=== PATIENT | male | born 1980 | race Caucasian/White ===

== ENCOUNTER 2017-11-15 12:26 | Emergency (ER) | payer MEDICAID, OTHER ==
[~2017-11-15] VITALS: Ht 175.3 cm; Wt 95.0 kg
[~2017-11-15 12:26] MED LIST: ALPR-624 PO; HYDR-569 PO
[2017-11-15] MEDS ORDERED: LORazepam 2 mg/ml vial IV ONE (14:30)
[2017-11-15] MEDS ORDERED: normal saline 1000ML IV soln IVB ONE (14:30)
[2017-11-15 14:52] LABS: HEMATOCRIT 42.5 % (42.0-52.0); HEMOGLOBIN 14.8 g/dl (14.0-17.9); MEAN CORPUSCULAR HEMOGLOBIN 31.3 PG (27.0-31.0); MEAN CORPUSCULAR HGB CONC 34.8 % (33.0-36.5); MEAN CORPUSCULAR VOLUME 90.1 FL (78-98); RED BLOOD COUNT 4.71 X10'6 (4.70-6.10); RED CELL DISTRIBUTION WIDTH 14.4 % (11.5-14.5); WHITE BLOOD COUNT 12.9 X10'3 (4.5-11.0)
[2017-11-15 14:53] LABS: MEAN PLATELET VOLUME 7.5 FL (7.4-10.4); PLATELET COUNT 324 X10'3 (140-440)
[2017-11-15] MEDS ORDERED: aspirin 81mg tab.chew PO ONE (15:05)
[2017-11-15 15:09] LABS: ALANINE AMINOTRANSFERASE 74 U/L (12-78); ALBUMIN 3.8 G/DL (3.4-5.0); ALBUMIN/GLOBULIN RATIO 0.9 (1.1-1.5); ALKALINE PHOSPHATASE 59 IU/L (46-116); ASPARTATE AMINO TRANSFERASE 54 U/L (10-37); BILIRUBIN,TOTAL 0.4 MG/DL (0.1-1.0); BLOOD UREA NITROGEN 11 MG/DL (7-18); BUN/CREATININE RATIO 9.8 (5.4-32.0); CALCIUM 8.8 MG/DL (8.5-10.1); CHLORIDE 102 MMOL/L (99-107); CREATININE 1.12 MG/DL (0.60-1.10); GLUCOSE 103 MG/DL (70-104); LIPASE 109 U/L (73-393); POTASSIUM 4.3 MMOL/L (3.5-5.1); SODIUM 139 MMOL/L (135-145); eGFR 74 ML/MIN
[2017-11-15 15:18] LABS: ANION GAP 21 (8-16); TOTAL CARBON DIOXIDE 16.3 MMOL/L (24-32)
[2017-11-15 15:43] LABS: PLATELET ESTIMATE NORMAL; TOTAL CELLS COUNTED 100
[2017-11-15 15:44] LABS: ROULEAUX 1+
[2017-11-15] MEDS ORDERED: LORA1TAB PO (17:21)
[2017-11-15 18:05] VITALS: BP 121/86
== END 2017-11-15 18:09 | disposition home or self-care (01) ==
LOC: ER 12:26
DX: F41.0 Panic disorder [episodic paroxysmal anxiety] (principal); R07.9 Chest pain, unspecified; F17.200 Nicotine dependence, unspecified, uncomplicated; Z60.2 Problems related to living alone
CPT/HCPCS: 36415; 71045; 80053; 83690; 84484; 85025; 85610; 93005; 96361; 96374; 99285; J7030

== ENCOUNTER 2018-04-20 07:11 | Emergency (ER) | payer MEDICAID, OTHER ==
[~2018-04-20] VITALS: Ht 175.3 cm; Wt 88.4 kg
[~2018-04-20 07:11] MED LIST changes: +HYDR-4383 PO; -HYDR-569 PO
[2018-04-20] MEDS ORDERED: morphine 4 MG/ML inj SYRINge IV PRN (07:35)
[2018-04-20] MEDS ORDERED: normal saline 1000ML IV soln IVB ONE ×2 (07:35→08:50)
[2018-04-20] MEDS ORDERED: ondansetron/PF 4mg/2ml inj IV ONE (07:35)
[2018-04-20 07:55] LABS: CLARITY,URINE CLEAR (Clear); COLOR,URINE YELLOW (Yellow); GLUCOSE, URINE NEGATIVE (Neg); KETONES,URINE NEGATIVE (Neg); LEUKOCYTE ESTERASE ,URINE NEGATIVE (Neg); NITRITES, URINE NEGATIVE (Neg); OCCULT BLOOD,URINE NEGATIVE (Neg); PROTEIN,URINE NEGATIVE (Neg); UROBILINOGEN,URINE 0.2 E.U/dL (0.2-1.0)
[2018-04-20 08:01] LABS: UA COLLECTION TYPE CLN CATCH MIDSTREAM
[2018-04-20 08:07] LABS: ALBUMIN 3.7 G/DL (3.4-5.0); ALKALINE PHOSPHATASE 75 IU/L (46-116); BILIRUBIN,TOTAL 0.5 MG/DL (0.1-1.0); CALCIUM 7.8 MG/DL (8.5-10.1); CHLORIDE 98 MMOL/L (99-107); CREATININE 1.19 MG/DL (0.60-1.10); LIPASE 155 U/L (73-393); TOTAL CARBON DIOXIDE 18.8 MMOL/L (24-32); eGFR 69 ML/MIN
[2018-04-20 08:18] LABS: EOSINOPHILS # (AUTO) 0.1 X10'3 (0-0.9); EOSINOPHILS % (AUTO) 0.8 % (0-6); RED CELL DISTRIBUTION WIDTH 13.6 % (11.5-14.5)
[2018-04-20 08:32] LABS: ALANINE AMINOTRANSFERASE 21 U/L (12-78); ALBUMIN/GLOBULIN RATIO 0.9 (1.1-1.5); ANION GAP 22 (8-16); BLOOD UREA NITROGEN 19 MG/DL (7-18); GLUCOSE 130 MG/DL (70-104); SODIUM 139 MMOL/L (135-145); TOTAL PROTEIN 7.7 G/DL (6.4-8.2)
[2018-04-20 08:34] LABS: MONOCYTES # (AUTO) 0.5 X10'3 (0-0.9)
[2018-04-20 08:35] LABS: ASPARTATE AMINO TRANSFERASE 21 U/L (10-37); POTASSIUM 3.6 MMOL/L (3.5-5.1)
[2018-04-20 08:49] LABS: BASOPHILS % (AUTO) 0.3 % (0-1); HEMOGLOBIN 14.9 g/dl (14.0-17.9); LYMPHOCYTES # (AUTO) 2.2 X10'3 (1.1-4.8); LYMPHOCYTES % (AUTO) 26.4 % (21-51); MEAN CORPUSCULAR HGB CONC 34.8 % (33.0-36.5); MEAN PLATELET VOLUME 8.7 FL (7.4-10.4); MONOCYTES % (AUTO) 6.6 % (2-12); NEUTROPHILS # (AUTO) 5.4 X10'3 (1.8-7.7); NEUTROPHILS % (AUTO) 65.9 % (42-75); PLATELET COUNT 182 X10'3 (140-440); RED BLOOD COUNT 4.83 X10'6 (4.70-6.10); WHITE BLOOD COUNT 8.2 X10'3 (4.5-11.0)
[2018-04-20] MEDS ORDERED: morphine 4 MG/ML inj SYRINge IV ONE (08:50)
[2018-04-20 09:15] VITALS: BP 129/65
== END 2018-04-20 09:17 | disposition home or self-care (01) ==
LOC: ER 07:11
DX: K85.90 Acute pancreatitis without necrosis or infection, unspecified (principal); F41.9 Anxiety disorder, unspecified; R11.2 Nausea with vomiting, unspecified
CPT/HCPCS: 36415; 80053; 81003; 83690; 85025; 96361; 96374; 96375; 99284; J2270; J2405

== ENCOUNTER 2020-02-01 12:54 | Emergency (ER) | payer MEDICAID ==
[~2020-02-01] VITALS: Ht 175.3 cm; Wt 84.1 kg
[2020-02-01] MEDS ORDERED: normal saline 1000ML IV soln IVB ONE (13:45)
[2020-02-01] MEDS ORDERED: ondansetron/PF 4mg/2ml inj IV ONE (13:45)
[2020-02-01] MEDS ORDERED: GEMF600T89 PO (13:55)
[2020-02-01] MEDS ORDERED: ATOR20TA66 PO (13:55)
[2020-02-01 14:00] LABS: BASOPHILS # (AUTO) 0.2 X10'3 (0-0.2); BASOPHILS % (AUTO) 0.8 % (0-1); EOSINOPHILS % (AUTO) 0.1 % (0-6); HEMATOCRIT 28.5 % (42.0-52.0); HEMOGLOBIN 9.5 g/dl (14.0-17.9); LYMPHOCYTES # (AUTO) 1.7 X10'3 (1.1-4.8); LYMPHOCYTES % (AUTO) 7.5 % (21-51); MEAN CORPUSCULAR HEMOGLOBIN 29.7 PG (27.0-31.0); MEAN CORPUSCULAR HGB CONC 33.5 g/dL (33.0-36.5); MEAN CORPUSCULAR VOLUME 88.6 FL (78-98); MEAN PLATELET VOLUME 6.9 FL (7.4-10.4); MONOCYTES # (AUTO) 1.2 X10'3 (0-0.9); MONOCYTES % (AUTO) 5.4 % (2-12); NEUTROPHILS % (AUTO) 86.2 % (42-75); PLATELET COUNT 269 X10'3 (140-440); RED BLOOD COUNT 3.22 X10'6 (4.70-6.10); RED CELL DISTRIBUTION WIDTH 14.9 % (11.5-14.5); WHITE BLOOD COUNT 22.1 X10'3 (4.5-11.0)
[2020-02-01] MEDS: diatr meglu/diatrizoate 30ml oral sol.-(3 dose) bottle PO SCH ×3 (14:04→15:47)
[2020-02-01] MEDS ORDERED: normal saline 1000ML IV soln IV ONE (14:05)
[2020-02-01 14:18] LABS: ALANINE AMINOTRANSFERASE 15 U/L (12-78); ALBUMIN/GLOBULIN RATIO 0.7 (1.1-1.5); ALKALINE PHOSPHATASE 56 IU/L (46-116); ANION GAP 7 (8-16); ASPARTATE AMINO TRANSFERASE 15 U/L (10-37); BILIRUBIN,TOTAL 0.7 MG/DL (0.1-1.0); BLOOD UREA NITROGEN 10 MG/DL (7-18); BUN/CREATININE RATIO 8.9 (5.4-32.0); CALCIUM 8.7 MG/DL (8.5-10.1); CHLORIDE 95 MMOL/L (99-107); CREATININE 1.12 MG/DL (0.60-1.10); GLUCOSE 109 MG/DL (70-104); LIPASE 75 U/L (73-393); POTASSIUM 3.7 MMOL/L (3.5-5.1); SODIUM 130 MMOL/L (135-145); TOTAL CARBON DIOXIDE 27.9 MMOL/L (24-32); TOTAL PROTEIN 7.3 G/DL (6.4-8.2); eGFR 73 ML/MIN
--- NOTE | 2020-02-01 14:40 | NUR ---
Pt ambulatory to the restroom. Pt refuses to use the urinal in the room and keep the IV fluid connected.
[2020-02-01 15:02] LABS: CLARITY,URINE CLEAR (Clear); COLOR,URINE STRAW (Yellow); GLUCOSE, URINE NEGATIVE (Neg); KETONES,URINE NEGATIVE (Neg); LEUKOCYTE ESTERASE ,URINE NEGATIVE (Neg); NITRITES, URINE NEGATIVE (Neg); OCCULT BLOOD,URINE TRACE-INTACT (Neg); PROTEIN,URINE NEGATIVE (Neg); UROBILINOGEN,URINE 0.2 E.U/dL (0.2-1.0)
[2020-02-01 15:03] LABS: UA COLLECTION TYPE CLN CATCH MIDSTREAM
[2020-02-01 15:08] LABS: BACTERIA,URINE NONE SEEN /HPF (Neg); MUCUS STRANDS NONE SEEN /LPF (Neg); RBC,URINE NONE SEEN /HPF (0-2); SQUAMOUS EPITHELIAL CELL,UR FEW /LPF (FEW); WBC,URINE 0-4 /HPF (0-4)
--- NOTE | 2020-02-01 15:30 | NUR ---
Pt is aware of the order to remain NPO other than Gastrografin oral contrast. Pt is eating his tic tacs regardless of the NPO instructions.
[2020-02-01] MEDS ORDERED: fentaNYL/PF 50MCG/1 ML 2ML syringe IV ONE ×2 (15:35→21:30)
[2020-02-01] MEDS ORDERED: iohexol 300mg/ml 100ml inj. ONE (15:45)
--- NOTE | 2020-02-01 16:28 | NUR ---
Pt ambulatory to the restroom and insisted on having his IV disconnected to make it easier to ambulate.
[2020-02-01] MEDS ORDERED: OMEG-167 PO (17:17)
[2020-02-01] MEDS ORDERED: ALPR1TAB7 PO (17:17)
[2020-02-01] MEDS ORDERED: piperacillin/tazo 3.375gm/50ml 50 ML IV ONE (17:50)
--- NOTE | 2020-02-01 17:52 | NUR ---
discussed pt's c/o nausea and restlessness w/ edmd oliveira; new order received for reglan 30mg Addendum: 02/01/20 at 1753 by JOSEPHINETEBREN s/b 10mg not 30mg.
[2020-02-01] MEDS ORDERED: metoclopramide 5 mg/ml inj IV ONE (17:55)
--- NOTE | 2020-02-01 18:38 | NUR ---
Pt's IV fluid bolus is completed, vitals stable, zosyn 3.375gm is infusing, close to completion.
--- NOTE | 2020-02-01 18:45 | NUR ---
Pt requested IV fluid disconnected again. IV fluid bolus and abx infusion completed. IV saline locked at this time.
[2020-02-01 18:48] LABS: ETHANOL < 0.010 GM/DL (0.0-0.010)
[2020-02-01 18:56] LABS: URINE AMPHETAMINE SCREEN NEGATIVE (Neg); URINE BARBITUATE SCREEN NEGATIVE (Neg); URINE BENZODIAZEPINES SCREEN POSITIVE (Neg); URINE CANNABINOID SCREEN POSITIVE (Neg); URINE COCAINE SCREEN NEGATIVE (Neg); URINE METHADONE SCREEN NEGATIVE (Neg); URINE OPIATE SCREEN POSITIVE (Neg); URINE PHENCYCLIDINE SCREEN NEGATIVE (Neg)
[2020-02-01] MEDS ORDERED: normal saline 1000ml 1,000 ML IV ONE (19:40)
[2020-02-01] MEDS ORDERED: acetaminophen 325mg tablet PO ONE (19:40)
--- NOTE | 2020-02-01 20:13 | NUR ---
CALLED [facility] SAID THAT HIS CASE WAS REFERRED TO THERE [facility]. LUCÍA THE S3B MULTI SENSOR OPERATOR SAID THAT THE [facility] WOULD GIVE ME A CALL BACK
[2020-02-01] MEDS ORDERED: morphine 4 MG/ML inj SYRINge IV ONE (22:55)
--- NOTE | 2020-02-02 00:19 | NUR ---
pt came out to NS and said the morphine "didnt do shit." Will notify
[2020-02-02] MEDS ORDERED: HYDROmorphone 1 mg/ml syringe IV ONE ×2 (00:20→02:10)
[2020-02-02 00:31] VITALS: BP 131/65
[2020-02-02] MEDS ORDERED: acetaminophen 325mg tablet PO STA (00:37)
--- NOTE | 2020-02-02 02:03 | NUR ---
checked on him. updated him that he will go by fixed wing and they will be here probably within the hour to get him. He is sweating. Informed him that his temp probably broke.
--- NOTE | 2020-02-02 03:03 | NUR ---
RAMESH TO [facility] AT [facility]
== END 2020-02-02 03:38 | disposition short-term general hospital (02) ==
LOC: ER 12:56
DX: K86.3 Pseudocyst of pancreas (principal); R10.819 Abdominal tenderness, unspecified site; F41.9 Anxiety disorder, unspecified; F17.200 Nicotine dependence, unspecified, uncomplicated; F15.90 Other stimulant use, unspecified, uncomplicated; R11.2 Nausea with vomiting, unspecified; Z98.890 Other specified postprocedural states; Z72.89 Other problems related to lifestyle; Z60.2 Problems related to living alone; Z79.899 Other long term (current) drug therapy
CPT/HCPCS: 36415; 74177; 80053; 80305; 80320; 81001; 83605; 83690; 84145; 85025; 87040; 87635; 96361; 96365; 96375; 96376; 99285; C9803; J1170; J2270; J2405; J2543; J2765; J3010; J7030; Q9963; Q9967

== ENCOUNTER 2020-02-17 13:00 | Emergency (ER) | payer MEDICAID ==
[~2020-02-17] VITALS: Ht 175.3 cm; Wt 66.5 kg
[~2020-02-17 13:00] MED LIST changes: -ALPR-624 PO; +ALPR1TAB7 PO; +ATOR20TA66 PO; -HYDR-4383 PO; +OMEG-167 PO
[2020-02-17 15:26] LABS: MEAN CORPUSCULAR HGB CONC 33.3 g/dL (33.0-36.5); MONOCYTES # (AUTO) 0.7 X10'3 (0-0.9)
[2020-02-17 15:27] LABS: BASOPHILS # (AUTO) 0.2 X10'3 (0-0.2); BASOPHILS % (AUTO) 1.2 % (0-1); EOSINOPHILS % (AUTO) 0.2 % (0-6); HEMATOCRIT 39.1 % (42.0-52.0); LYMPHOCYTES # (AUTO) 2.5 X10'3 (1.1-4.8); MEAN CORPUSCULAR HEMOGLOBIN 28.5 PG (27.0-31.0); MEAN CORPUSCULAR VOLUME 85.6 FL (78-98); MEAN PLATELET VOLUME 7.1 FL (7.4-10.4); MONOCYTES % (AUTO) 4.5 % (2-12); NEUTROPHILS # (AUTO) 11.5 X10'3 (1.8-7.7); NEUTROPHILS % (AUTO) 77.1 % (42-75); PLATELET COUNT 751 X10'3 (140-440); RED BLOOD COUNT 4.57 X10'6 (4.70-6.10); RED CELL DISTRIBUTION WIDTH 15.8 % (11.5-14.5); WHITE BLOOD COUNT 14.9 X10'3 (4.5-11.0)
[2020-02-17 15:40] LABS: ANION GAP 13 (8-16); BILIRUBIN,TOTAL 0.6 MG/DL (0.1-1.0); BLOOD UREA NITROGEN 9 MG/DL (7-18); BUN/CREATININE RATIO 9.3 (5.4-32.0); CALCIUM 10.2 MG/DL (8.5-10.1); CHLORIDE 96 MMOL/L (99-107); CREATININE 0.97 MG/DL (0.60-1.10); GLUCOSE 128 MG/DL (70-104); SODIUM 138 MMOL/L (135-145); TOTAL CARBON DIOXIDE 29.1 MMOL/L (24-32); eGFR 87 ML/MIN
[2020-02-17 15:41] LABS: ALANINE AMINOTRANSFERASE 8 U/L (12-78); ALBUMIN 3.8 G/DL (3.4-5.0); ALBUMIN/GLOBULIN RATIO 0.7 (1.1-1.5); ALKALINE PHOSPHATASE 89 IU/L (46-116); ASPARTATE AMINO TRANSFERASE 8 U/L (10-37); LIPASE 109 U/L (73-393); TOTAL PROTEIN 9.1 G/DL (6.4-8.2)
[2020-02-17] MEDS ORDERED: MEROPENEM 1GM/NS 50ML IVPB 50 ML IV STA (15:54)
[2020-02-17] MEDS ORDERED: normal saline 1000ML IV soln IVB ONE ×2 (15:55→16:35)
[2020-02-17] MEDS ORDERED: metoclopramide 5 mg/ml inj IV ONE (15:55)
[2020-02-17] MEDS ORDERED: oxyCODONE SR 10mg (sust. release) tab PO ONE (15:55)
[2020-02-17] MEDS ORDERED: iohexol 300mg/ml 100ml inj. ONE (16:00)
[2020-02-17] MEDS ORDERED: normal saline 1000ML IV soln IV ONE (16:35)
[2020-02-17 18:52] VITALS: BP 114/77
== END 2020-02-17 18:54 | disposition home or self-care (01) ==
LOC: ER 13:01
DX: K91.89 Other postprocedural complications and disorders of digestive system (principal); R11.2 Nausea with vomiting, unspecified; K59.00 Constipation, unspecified; F41.9 Anxiety disorder, unspecified; F15.90 Other stimulant use, unspecified, uncomplicated; Z98.890 Other specified postprocedural states; Z60.2 Problems related to living alone; Z79.899 Other long term (current) drug therapy
CPT/HCPCS: 36415; 74177; 80053; 83605; 83690; 84145; 85025; 87040; 93005; 96365; 96375; 99285; J2185; J2765; J7030; Q9967

== ENCOUNTER 2021-06-06 13:43 | Inpatient (IN) | payer MEDICAID ==
[~2021-06-06] VITALS: Ht 175.3 cm; Wt 90.9 kg
[2021-06-06 14:28] LABS: BASOPHILS % (AUTO) 0.2 % (0-1); EOSINOPHILS % (AUTO) 0.1 % (0-6); HEMATOCRIT 45.1 % (42.0-52.0); HEMOGLOBIN 15.7 g/dl (14.0-17.9); LYMPHOCYTES # (AUTO) 1.3 X10'3 (1.1-4.8); LYMPHOCYTES % (AUTO) 6.7 % (21-51); MEAN CORPUSCULAR HEMOGLOBIN 30.4 PG (27.0-31.0); MEAN CORPUSCULAR HGB CONC 34.7 g/dL (33.0-36.5); MEAN CORPUSCULAR VOLUME 87.6 FL (78-98); MEAN PLATELET VOLUME 7.2 FL (7.4-10.4); MONOCYTES # (AUTO) 1.2 X10'3 (0-0.9); MONOCYTES % (AUTO) 6.3 % (2-12); NEUTROPHILS # (AUTO) 16.2 X10'3 (1.8-7.7); NEUTROPHILS % (AUTO) 86.7 % (42-75); PLATELET COUNT 356 X10'3 (140-440); RED BLOOD COUNT 5.15 X10'6 (4.70-6.10); RED CELL DISTRIBUTION WIDTH 16.1 % (11.5-14.5); WHITE BLOOD COUNT 18.7 X10'3 (4.5-11.0)
[2021-06-06 14:41] LABS: ALANINE AMINOTRANSFERASE 39 U/L (12-78); ALBUMIN 3.6 G/DL (3.4-5.0); ALBUMIN/GLOBULIN RATIO 0.7 (1.1-1.5); ALKALINE PHOSPHATASE 54 IU/L (46-116); AMYLASE 59 U/L (25-115); ANION GAP 10 (8-16); ASPARTATE AMINO TRANSFERASE 19 U/L (10-37); BILIRUBIN,TOTAL 0.7 MG/DL (0.1-1.0); BLOOD UREA NITROGEN 19 MG/DL (7-18); BUN/CREATININE RATIO 14.3 (5.4-32.0); CALCIUM 9.5 MG/DL (8.5-10.1); CHLORIDE 97 MMOL/L (99-107); CREATININE 1.33 MG/DL (0.60-1.10); GLUCOSE 109 MG/DL (70-104); LIPASE 112 U/L (73-393); POTASSIUM 4.1 MMOL/L (3.5-5.1); SODIUM 135 MMOL/L (135-145); TOTAL CARBON DIOXIDE 28.5 MMOL/L (24-32); TOTAL PROTEIN 8.8 G/DL (6.4-8.2); eGFR 60 ML/MIN
[2021-06-06 15:44] LABS: CLARITY,URINE CLEAR (Clear); COLOR,URINE ORANGE (Yellow); GLUCOSE, URINE NEGATIVE (Neg); KETONES,URINE 15 mg/dl (Neg); LEUKOCYTE ESTERASE ,URINE NEGATIVE (Neg); NITRITES, URINE NEGATIVE (Neg); OCCULT BLOOD,URINE MODERATE (Neg); PH,URINE 6.5 (4.8-8.0); PROTEIN,URINE 30 mg/dl (Neg); UROBILINOGEN,URINE 0.2 E.U/dL (0.2-1.0)
[2021-06-06 15:45] LABS: UA COLLECTION TYPE URINAL
[2021-06-06 15:51] LABS: MUCUS STRANDS MODERATE /LPF (Neg)
[2021-06-06 15:52] LABS: SQUAMOUS EPITHELIAL CELL,UR FEW /LPF (FEW)
[2021-06-06 15:54] LABS: BACTERIA,URINE FEW /HPF (Neg)
[2021-06-06 15:55] LABS: WBC,URINE 0-4 /HPF (0-4)
[2021-06-06] MEDS ORDERED: ondansetron/PF 4mg/2ml inj IV ONE (17:00)
[2021-06-06] MEDS ORDERED: HYDROmorphone 1 mg/ml syringe IV ONE (17:00)
[2021-06-06] MEDS ORDERED: metroNIDAZOLE-Flagyl 500mg/NS 100 ML IV STA (17:37)
[2021-06-06] MEDS ORDERED: normal saline 1000ML IV soln IV ONE (17:40)
[2021-06-06] MEDS ORDERED: vancomycin/NS 1 GM ADD-VANTAGE 250 ML IV ONE (17:40)
[2021-06-06] MEDS ORDERED: piperacillin/tazo 3.375gm/50ml 50 ML IV ONE (17:40)
[2021-06-06] MEDS ORDERED: acetaminophen 325mg tablet PO ONE (18:20)
[2021-06-06] MEDS: HYDROmorphone 1 mg/ml syringe IV PRN ×3 (18:49→23:12)
[2021-06-06] MEDS ORDERED: HYDROmorphone/PF 0.2 MG/ML SYRINGE IV PRN (19:25)
[2021-06-06] MEDS ORDERED: mag hydrox/Alum hydrox/simeth 30ml oral suspension PO PRN (19:25)
[2021-06-06] MEDS ORDERED: ondansetron/PF 4mg/2ml inj IV PRN (19:25)
[2021-06-06] MEDS ORDERED: HYDROmorphone inj. 0.5 MG/0.5 ML DISP.SYRIN IV PRN (19:25)
[2021-06-06] MEDS ORDERED: bisacodyl 10mg suppository rectal RC PRN (19:25)
[2021-06-06] MEDS ORDERED: morphine 2 MG/ML inj. syringe IV PRN ×2 (19:25)
[2021-06-06] MEDS ORDERED: magnesium hydroxide 30ml (MOM) UD suspension PO PRN (19:25)
[2021-06-06] MEDS ORDERED: ondansetron 4mg rapidly disintigrating tab PO PRN (19:25)
[2021-06-06] MEDS ORDERED: diphenhydrAMINE 50 mg/ml inj IV PRN (19:25)
[2021-06-06] MEDS ORDERED: acetaminophen 325mg tablet PO PRN (19:25)
[2021-06-06] MEDS ORDERED: diphenhydrAMINE 25mg capsule PO PRN (19:25)
[2021-06-06] MEDS ORDERED: acetaminophen 650mg rectal suppository RC PRN (19:25)
[2021-06-06] MEDS ORDERED: HYDROcodone/acetaminophen 5mg/325mg tablet PO PRN (19:25)
[2021-06-06] MEDS ORDERED: ringers solution, lacted 1,000 ML IV ONE (19:30)
[2021-06-06 20:12] LABS: CREATINE KINASE 273 U/L (39-308); MAGNESIUM 2.5 MG/DL (1.5-2.4); PHOSPHORUS 2.9 MG/DL (2.3-4.5)
[2021-06-06 20:54] LABS: URINE AMPHETAMINE SCREEN NEGATIVE (Neg); URINE BARBITUATE SCREEN NEGATIVE (Neg); URINE BENZODIAZEPINES SCREEN NEGATIVE (Neg); URINE CANNABINOID SCREEN POSITIVE (Neg); URINE COCAINE SCREEN NEGATIVE (Neg); URINE METHADONE SCREEN NEGATIVE (Neg); URINE OPIATE SCREEN NEGATIVE (Neg); URINE PHENCYCLIDINE SCREEN NEGATIVE (Neg)
[2021-06-06] MEDS: docusate sod 100mg capsule PO SCH (20:58)
[2021-06-06] MEDS ORDERED: temazepam 15mg capsule PO PRN (21:00)
[2021-06-06] MEDS: ALPRAZolam 0.5mg tablet PO PRN (21:21)
[2021-06-06 22:00] VITALS: BP 104/48
[2021-06-06] MEDS: normal saline 1000ml 1,000 ML IV SCH (22:00)
--- NOTE | 2021-06-06 22:30 | NUR ---
Assumed patient care. Patient brought to unit via wheelchair. Vitals signs Currently appear to be stable. Patient complaints pain Med IV given as ordered. Pt alert and oriented.Pt placed on low bed and locked. Bedside table and call light within reach. Please see patient chart for further assessments
[2021-06-07] VITALS (15 sets, daily range): BP systolic 90–137; BP diastolic 41–77
[2021-06-07] MEDS: piperacillin/tazo 4.5gm/100ml 100 ML IV SCH ×3 (00:24→16:17)
[2021-06-07] MEDS: HYDROmorphone 1 mg/ml syringe IV PRN ×11 (01:20→19:14)
[2021-06-07] MEDS: HYDROcodone/acetaminophen 10/325mg tab PO PRN ×2 (02:23→06:56)
[2021-06-07] MEDS: ALPRAZolam 0.5mg tablet PO PRN ×2 (02:24→22:01)
[2021-06-07] MEDS: normal saline 1000ml 1,000 ML IV SCH ×3 (06:05→19:20)
--- NOTE | 2021-06-07 06:46 | NUR ---
Problems reprioritized. Patient report given, questions answered & plan of care reviewed with Jeniffer TORRE .
--- NOTE | 2021-06-07 06:55 | NUR ---
Patient in room PCU 3013. I have received report from [place] and had the opportunity to ask questions and assume patient care.
[2021-06-07 06:59] LABS: BASOPHILS % (AUTO) 0.1 % (0-1); EOSINOPHILS # (AUTO) 0.1 X10'3 (0-0.9); EOSINOPHILS % (AUTO) 0.4 % (0-6); HEMATOCRIT 39.5 % (42.0-52.0); HEMOGLOBIN 13.7 g/dl (14.0-17.9); MEAN CORPUSCULAR HEMOGLOBIN 30.4 PG (27.0-31.0); MEAN CORPUSCULAR HGB CONC 34.6 g/dL (33.0-36.5); MEAN CORPUSCULAR VOLUME 87.8 FL (78-98); MEAN PLATELET VOLUME 7.3 FL (7.4-10.4); MONOCYTES # (AUTO) 0.9 X10'3 (0-0.9); MONOCYTES % (AUTO) 6.9 % (2-12); NEUTROPHILS # (AUTO) 11.1 X10'3 (1.8-7.7); NEUTROPHILS % (AUTO) 84.6 % (42-75); PLATELET COUNT 270 X10'3 (140-440); WHITE BLOOD COUNT 13.1 X10'3 (4.5-11.0)
[2021-06-07] MEDS ORDERED: vancomycin/NS 1 GM ADD-VANTAGE 250 ML IV SCH (07:00)
[2021-06-07] MEDS: pantoprazole IV 40 MG in dextrose 5%-water 100 ML IV SCH (07:00)
[2021-06-07] MEDS: docusate sod 100mg capsule PO SCH ×2 (07:00→19:12)
[2021-06-07 07:09] LABS: APTT 33 SECONDS (22-32)
[2021-06-07 07:25] LABS: ALANINE AMINOTRANSFERASE 26 U/L (12-78); ALBUMIN 2.8 G/DL (3.4-5.0); ALBUMIN/GLOBULIN RATIO 0.6 (1.1-1.5); ALKALINE PHOSPHATASE 46 IU/L (46-116); ANION GAP 9 (8-16); ASPARTATE AMINO TRANSFERASE 21 U/L (10-37); BILIRUBIN,TOTAL 0.4 MG/DL (0.1-1.0); BLOOD UREA NITROGEN 16 MG/DL (7-18); CALCIUM 8.4 MG/DL (8.5-10.1); CHLORIDE 103 MMOL/L (99-107); CHOL/HDL RATIO 4.9 (0.00-4.99); CHOLESTEROL 93 MG/DL (0-200); GLUCOSE 116 MG/DL (70-104); HDL CHOLESTEROL 19 MG/DL (35-60); LDL CHOLESTEROL 46 MG/DL (50-100); POTASSIUM 3.7 MMOL/L (3.5-5.1); SODIUM 136 MMOL/L (135-145); TOTAL CARBON DIOXIDE 24.3 MMOL/L (24-32); TOTAL PROTEIN 7.3 G/DL (6.4-8.2); TRIGLYCERIDES 101 MG/DL (20-135); eGFR 83 ML/MIN
[2021-06-07] MEDS ORDERED: LIDOcaine 1% 30ml preserv. free vial IJ STA (11:38)
[2021-06-07] MEDS ORDERED: midazolam 1 mg/ML 2ml injection ONE (12:23)
[2021-06-07] MEDS ORDERED: fentaNYL/PF 50MCG/1 ML 2ML syringe ONE (12:23)
[2021-06-07] MEDS ORDERED: oxyCODONE/APAP 5-325mg tablet PO PRN (13:30)
[2021-06-07] MEDS: oxyCODONE/APAP 10/325mg tablet PO PRN ×2 (14:17→22:02)
[2021-06-07] MEDS: vancomycin/NS 1 GM ADD-VANTAGE 250 ML IV SCH ×2 (14:33→22:01)
[2021-06-08] MEDS: piperacillin/tazo 4.5gm/100ml 100 ML IV SCH ×3 (00:27→16:00)
[2021-06-08 02:00] VITALS: BP 112/53
[2021-06-08] MEDS: HYDROmorphone 1 mg/ml syringe IV PRN ×7 (05:02→22:57)
[2021-06-08 06:00] VITALS: BP 123/61
[2021-06-08] MEDS ORDERED: VANCOMYCIN LEVEL IV ONE (06:30)
--- NOTE | 2021-06-08 06:31 | NUR ---
Patient in room PCU 3013. I have received report from jolie unger and had the opportunity to ask questions and assume patient care.
[2021-06-08 07:08] LABS: BASOPHILS % (AUTO) 0.2 % (0-1); EOSINOPHILS # (AUTO) 0.1 X10'3 (0-0.9); EOSINOPHILS % (AUTO) 0.7 % (0-6); HEMATOCRIT 36.5 % (42.0-52.0); HEMOGLOBIN 12.6 g/dl (14.0-17.9); LYMPHOCYTES # (AUTO) 0.7 X10'3 (1.1-4.8); MEAN CORPUSCULAR HEMOGLOBIN 30.5 PG (27.0-31.0); MEAN CORPUSCULAR HGB CONC 34.6 g/dL (33.0-36.5); MEAN CORPUSCULAR VOLUME 88.1 FL (78-98); MEAN PLATELET VOLUME 7.2 FL (7.4-10.4); MONOCYTES # (AUTO) 0.7 X10'3 (0-0.9); MONOCYTES % (AUTO) 6.8 % (2-12); NEUTROPHILS # (AUTO) 8.3 X10'3 (1.8-7.7); NEUTROPHILS % (AUTO) 85.3 % (42-75); PLATELET COUNT 293 X10'3 (140-440); RED BLOOD COUNT 4.15 X10'6 (4.70-6.10); RED CELL DISTRIBUTION WIDTH 15.5 % (11.5-14.5); WHITE BLOOD COUNT 9.7 X10'3 (4.5-11.0)
[2021-06-08] MEDS: docusate sod 100mg capsule PO SCH ×2 (07:20→20:43)
[2021-06-08] MEDS: vancomycin/NS 1 GM ADD-VANTAGE 250 ML IV SCH (07:20)
[2021-06-08 07:38] LABS: ALANINE AMINOTRANSFERASE 65 U/L (12-78); ALBUMIN 2.6 G/DL (3.4-5.0); ALBUMIN/GLOBULIN RATIO 0.6 (1.1-1.5); ALKALINE PHOSPHATASE 104 IU/L (46-116); ANION GAP 10 (8-16); ASPARTATE AMINO TRANSFERASE 53 U/L (10-37); BILIRUBIN,TOTAL 0.5 MG/DL (0.1-1.0); BLOOD UREA NITROGEN 13 MG/DL (7-18); CALCIUM 8.6 MG/DL (8.5-10.1); CHLORIDE 103 MMOL/L (99-107); GLUCOSE 119 MG/DL (70-104); POTASSIUM 3.6 MMOL/L (3.5-5.1); SODIUM 138 MMOL/L (135-145); TOTAL CARBON DIOXIDE 24.6 MMOL/L (24-32); eGFR 83 ML/MIN
[2021-06-08] MEDS: ALPRAZolam 0.5mg tablet PO PRN ×2 (09:34→20:43)
[2021-06-08] MEDS: normal saline 1000ml 1,000 ML IV SCH (09:35)
[2021-06-08] MEDS: oxyCODONE/APAP 10/325mg tablet PO PRN ×3 (09:35→23:28)
[2021-06-08] MEDS: pantoprazole IV 40 MG in dextrose 5%-water 100 ML IV SCH (09:36)
[2021-06-08 11:00] VITALS: BP 129/85
--- NOTE | 2021-06-08 13:52 | NUR ---
pt Iv was problematic this AM, so antibiotics were delayed some, but it was replaced. Pt Iv just got ripped out during zosyn administration, need to have a new IV. Will attempt to get pts IV so antibiotics can be continued. will try to stay on track with pt antibiotics
[2021-06-08 15:00] VITALS: BP 135/74
--- NOTE | 2021-06-08 16:08 | NUR ---
pt pulled out 3rd Iv for the day. antibiotics from earlier today are still trying to finish. i have not been able to hang my 1300 vanco due to pharmacy stating it can not be hung at the [facility]. will contact pharmacy again
--- NOTE | 2021-06-08 16:14 | NUR ---
pt IVs have been pulled out due to pt not being able to sit still, i did medicate pt with Xanax in order to help him relax. Attempts made for Ivs is 4 total for the shift and this is why pt antibiotics are running behind. Talked to pharmacist walter in pharmacy he stated to non admin the 1600 Zosyn since the dose for 1300 was late due to the IV situations throughout the shift. will continue to try to catch up on antibiotics from the day.
--- NOTE | 2021-06-08 16:32 | NUR ---
Page Sent PAGER ID: [phone] MESSAGE: [phone] felipa Clark pt is back to back with dilaudid and Percocet 10 1tab tab. would you like to try Percocet 10 2 tabs. robbie [phone]
[2021-06-08] MEDS: VANCOmycin 1250MG/NS 250ml Bag 250 ML IV SCH ×2 (16:40→20:55)
--- NOTE | 2021-06-08 16:49 | NUR ---
Page Sent PAGER ID: [phone] MESSAGE: Jose A Clark, please call me about pt zuhair, about pt behavior. [email or web address] [phone]
--- NOTE | 2021-06-08 18:11 | NUR ---
Problems reprioritized. Patient report given, questions answered & plan of care reviewed with Issa unger.
[2021-06-08 19:00] VITALS: BP 118/57
[2021-06-08] MEDS: lactobacillus rhamnosus 10,000 MMU CELLS/CAPSULE PO SCH (20:43)
[2021-06-08 22:00] VITALS: BP 131/78
[2021-06-09] MEDS: normal saline 1000ml 1,000 ML IV SCH ×3 (04:51→17:25)
[2021-06-09] MEDS: VANCOmycin 1250MG/NS 250ml Bag 250 ML IV SCH ×3 (04:51→20:52)
[2021-06-09] MEDS: HYDROmorphone 1 mg/ml syringe IV PRN ×5 (06:05→19:09)
--- NOTE | 2021-06-09 06:53 | NUR ---
Problems reprioritized. Patient report given, questions answered & plan of care reviewed with LEONARDO. Addendum: 06/09/21 at 0654 by Praveen West RN Amended: Links added.
[2021-06-09 07:00] VITALS: BP 101/50
[2021-06-09 07:04] LABS: BASOPHILS % (AUTO) 0.7 % (0-1); EOSINOPHILS # (AUTO) 0.1 X10'3 (0-0.9); EOSINOPHILS % (AUTO) 2.4 % (0-6); HEMOGLOBIN 13.3 g/dl (14.0-17.9); LYMPHOCYTES # (AUTO) 1.4 X10'3 (1.1-4.8); LYMPHOCYTES % (AUTO) 22.3 % (21-51); MEAN CORPUSCULAR HEMOGLOBIN 30.3 PG (27.0-31.0); MEAN CORPUSCULAR HGB CONC 34.1 g/dL (33.0-36.5); MEAN CORPUSCULAR VOLUME 88.8 FL (78-98); MEAN PLATELET VOLUME 7.2 FL (7.4-10.4); MONOCYTES # (AUTO) 0.5 X10'3 (0-0.9); MONOCYTES % (AUTO) 7.8 % (2-12); NEUTROPHILS # (AUTO) 4.1 X10'3 (1.8-7.7); NEUTROPHILS % (AUTO) 66.8 % (42-75); PLATELET COUNT 336 X10'3 (140-440); RED BLOOD COUNT 4.39 X10'6 (4.70-6.10); RED CELL DISTRIBUTION WIDTH 15.6 % (11.5-14.5); WHITE BLOOD COUNT 6.1 X10'3 (4.5-11.0)
[2021-06-09 07:31] LABS: ALANINE AMINOTRANSFERASE 72 U/L (12-78); ALBUMIN 2.6 G/DL (3.4-5.0); ALBUMIN/GLOBULIN RATIO 0.6 (1.1-1.5); ALKALINE PHOSPHATASE 81 IU/L (46-116); ANION GAP 10 (8-16); ASPARTATE AMINO TRANSFERASE 36 U/L (10-37); BILIRUBIN,TOTAL 0.3 MG/DL (0.1-1.0); BLOOD UREA NITROGEN 13 MG/DL (7-18); BUN/CREATININE RATIO 13.7 (5.4-32.0); CALCIUM 8.9 MG/DL (8.5-10.1); CHLORIDE 106 MMOL/L (99-107); CREATININE 0.95 MG/DL (0.60-1.10); GLUCOSE 101 MG/DL (70-104); SODIUM 139 MMOL/L (135-145); TOTAL CARBON DIOXIDE 23.3 MMOL/L (24-32); TOTAL PROTEIN 7.2 G/DL (6.4-8.2); eGFR 88 ML/MIN
--- NOTE | 2021-06-09 07:39 | NUR ---
Patient in room PCU 3013B. I have received report from NICOH LEAHY and had the opportunity to ask questions and assume patient care.
[2021-06-09] MEDS: pantoprazole IV 40 MG in dextrose 5%-water 100 ML IV SCH (08:00)
[2021-06-09] MEDS: piperacillin/tazo 4.5gm/100ml 100 ML IV SCH ×3 (08:00→16:38)
[2021-06-09] MEDS: lactobacillus rhamnosus 10,000 MMU CELLS/CAPSULE PO SCH ×2 (08:14→19:10)
[2021-06-09] MEDS: docusate sod 100mg capsule PO SCH ×2 (08:14→19:10)
[2021-06-09] MEDS: ALPRAZolam 0.5mg tablet PO PRN ×2 (08:47→20:52)
[2021-06-09 11:00] VITALS: BP 121/56
[2021-06-09] MEDS: oxyCODONE/APAP 10/325mg tablet PO PRN ×3 (11:58→22:08)
[2021-06-09] MEDS ORDERED: VANCOMYCIN LEVEL IV ONE (12:30)
[2021-06-09 15:00] VITALS: BP 101/62
[2021-06-09 18:00] VITALS: BP 113/58
--- NOTE | 2021-06-09 18:43 | NUR ---
Problems reprioritized. Patient report given, questions answered & plan of care reviewed with NICHO FREEMAN.
[2021-06-09 22:00] VITALS: BP 114/71
[2021-06-10] MEDS: piperacillin/tazo 4.5gm/100ml 100 ML IV SCH ×2 (00:18→09:30)
[2021-06-10] MEDS: HYDROmorphone 1 mg/ml syringe IV PRN ×4 (00:19→07:58)
[2021-06-10 02:00] VITALS: BP 106/71
[2021-06-10] MEDS: normal saline 1000ml 1,000 ML IV SCH (03:25)
[2021-06-10] MEDS: VANCOmycin 1250MG/NS 250ml Bag 250 ML IV SCH (04:04)
[2021-06-10] MEDS: oxyCODONE/APAP 10/325mg tablet PO PRN ×2 (04:04→09:29)
[2021-06-10 06:00] VITALS: BP 94/56
--- NOTE | 2021-06-10 07:00 | NUR ---
Patient in room PCU 3013B. I have received report from NICHO Hernández and had the opportunity to ask questions and assume patient care.
[2021-06-10 07:48] LABS: BASOPHILS % (AUTO) 0.5 % (0-1); EOSINOPHILS # (AUTO) 0.2 X10'3 (0-0.9); EOSINOPHILS % (AUTO) 2.5 % (0-6); HEMATOCRIT 41.6 % (42.0-52.0); LYMPHOCYTES # (AUTO) 1.7 X10'3 (1.1-4.8); LYMPHOCYTES % (AUTO) 24.3 % (21-51); MEAN CORPUSCULAR HEMOGLOBIN 29.8 PG (27.0-31.0); MEAN CORPUSCULAR HGB CONC 33.6 g/dL (33.0-36.5); MEAN CORPUSCULAR VOLUME 88.6 FL (78-98); MONOCYTES # (AUTO) 0.5 X10'3 (0-0.9); NEUTROPHILS # (AUTO) 4.4 X10'3 (1.8-7.7); NEUTROPHILS % (AUTO) 64.7 % (42-75); PLATELET COUNT 385 X10'3 (140-440); RED CELL DISTRIBUTION WIDTH 15.9 % (11.5-14.5); WHITE BLOOD COUNT 6.8 X10'3 (4.5-11.0)
[2021-06-10] MEDS: docusate sod 100mg capsule PO SCH (07:55)
[2021-06-10] MEDS: lactobacillus rhamnosus 10,000 MMU CELLS/CAPSULE PO SCH (07:55)
[2021-06-10] MEDS: pantoprazole IV 40 MG in dextrose 5%-water 100 ML IV SCH (08:03)
[2021-06-10 08:12] LABS: ALANINE AMINOTRANSFERASE 73 U/L (12-78); ALBUMIN 2.7 G/DL (3.4-5.0); ALBUMIN/GLOBULIN RATIO 0.6 (1.1-1.5); ALKALINE PHOSPHATASE 67 IU/L (46-116); ANION GAP 9 (8-16); ASPARTATE AMINO TRANSFERASE 26 U/L (10-37); BILIRUBIN,TOTAL 0.2 MG/DL (0.1-1.0); BLOOD UREA NITROGEN 13 MG/DL (7-18); BUN/CREATININE RATIO 13.1 (5.4-32.0); CHLORIDE 104 MMOL/L (99-107); CREATININE 0.99 MG/DL (0.60-1.10); GLUCOSE 93 MG/DL (70-104); SODIUM 140 MMOL/L (135-145); TOTAL CARBON DIOXIDE 26.8 MMOL/L (24-32); TOTAL PROTEIN 7.3 G/DL (6.4-8.2); eGFR 84 ML/MIN
[2021-06-10 10:54] LABS: LIPASE 50 U/L (73-393)
[2021-06-10] MEDS ORDERED: LEVO500T90 PO (10:54)
[2021-06-10] MEDS ORDERED: PANT-47 PO (10:54)
[2021-06-10] MEDS ORDERED: HYDR-3965 PO (10:56)
[2021-06-10 11:00] VITALS: BP 128/92
--- NOTE | 2021-06-10 11:49 | NUR ---
Page Sent PAGER ID: [phone] MESSAGE: TOYA [phone]-RE: EL WHITAKER [id number]...BYRON WITH IR SAID HE WILL NOT REMOVE CIRA DRAIN, STILL PUTTING OUT TOO MUCH, PT CAN FOLLOW UP WITH DR GARCIA OUT PT FOR REMOVAL.
--- NOTE | 2021-06-10 13:33 | NUR ---
Page Sent PAGER ID: [phone] MESSAGE: TOYA 9027-RE: EL WHITAKER [id number]...PT LEFT AMA WITH IV STILL IN. [employer]URITY NOTIFIED.
--- NOTE | 2021-06-10 13:38 | NUR ---
PT LEFT AMA. IV STILL IN. TELE MONITOR LEFT ON BED. [employer]URITY NOTIFIED.
== END 2021-06-10 13:30 | disposition left against medical advice (07) | DRG 720 ==
LOC: ER 13:43 → ED HOLD 19:29 → EDBEDREQ 20:22 → PCU 3S 22:09
PROVIDERS: ADMIT Family Medicine; ATTEND Internal Medicine
PROC: 0W9F30Z Drainage of Abdominal Wall with Drainage Device, Percutaneous Approach (ICD-10-PCS; principal; 2021-06-07)
DX: A41.9 Sepsis, unspecified organism (principal); K65.1 Peritoneal abscess; N15.1 Renal and perinephric abscess; K86.3 Pseudocyst of pancreas; R18.8 Other ascites; E78.5 Hyperlipidemia, unspecified; Z60.2 Problems related to living alone; Z53.29 Procedure and treatment not carried out because of patient's decision for other reasons; B96.5 Pseudomonas (aeruginosa) (mallei) (pseudomallei) as the cause of diseases classified elsewhere; R82.4 Acetonuria; E86.0 Dehydration; F15.90 Other stimulant use, unspecified, uncomplicated; F41.9 Anxiety disorder, unspecified; I10 Essential (primary) hypertension; K21.9 Gastro-esophageal reflux disease without esophagitis; Z76.5 Malingerer [conscious simulation]; Z79.899 Other long term (current) drug therapy
CPT/HCPCS: 36415; 49406; 74018; 74176; 80053; 80061; 80202; 80305; 81001; 82150; 82550; 83036; 83605; 83690; 83735; 83880; 84100; 84145; 84443; 85025; 85610; 85730; 87040; 87070; 87077; 87081; 87186; 96365; 96375; 99152; 99153; 99285; C9113; G0378; J1170; J2250; J2405; J2543; J3010; J3370; J7030; J7060

== ENCOUNTER 2021-06-13 08:00 | Emergency (ER) | payer MEDICAID ==
[~2021-06-13] VITALS: Ht 175.3 cm; Wt 94.9 kg
[~2021-06-13 08:00] MED LIST changes: +HYDR-3965 PO; +LEVO500T90 PO; +PANT-47 PO
[2021-06-13 08:18] VITALS: BP_SYST 116
[2021-06-13] MEDS ORDERED: HYDR-3972 PO (08:52)
== END 2021-06-13 09:15 | disposition home or self-care (01) ==
LOC: ER 08:00
DX: K86.3 Pseudocyst of pancreas (principal); F41.9 Anxiety disorder, unspecified; F15.90 Other stimulant use, unspecified, uncomplicated; Z72.89 Other problems related to lifestyle; Z98.890 Other specified postprocedural states; Z60.2 Problems related to living alone; Z79.899 Other long term (current) drug therapy; Z79.2 Long term (current) use of antibiotics
CPT/HCPCS: 99283

== ENCOUNTER 2022-02-16 03:29 | Emergency (ER) | payer MEDICAID ==
[~2022-02-16] VITALS: Ht 175.3 cm; Wt 77.3 kg
[~2022-02-16 03:29] MED LIST changes: -HYDR-3965 PO; -LEVO500T90 PO
[2022-02-16 03:37] VITALS: BP 122/75
[2022-02-16] MEDS ORDERED: normal saline 1000ML IV soln IVB ONE (04:25)
[2022-02-16] MEDS ORDERED: oxyCODONE/APAP 10/325mg tablet PO ONE (04:25)
[2022-02-16] MEDS ORDERED: OMEP40CA21 PO (04:27)
[2022-02-16] MEDS ORDERED: FENO145T26 PO (04:27)
[2022-02-16] MEDS ORDERED: METR-159 PO (04:27)
[2022-02-16] MEDS ORDERED: HYDR-3972 PO (04:27)
[2022-02-16] MEDS ORDERED: ESCI20TA39 PO (04:27)
[2022-02-16] MEDS ORDERED: CIPR500T5 PO (04:27)
[2022-02-16 05:10] LABS: ALANINE AMINOTRANSFERASE 22 U/L (12-78); ALBUMIN 3.1 G/DL (3.4-5.0); ALBUMIN/GLOBULIN RATIO 0.8 (1.1-1.5); ALKALINE PHOSPHATASE 164 IU/L (46-116); ANION GAP 9 (8-16); ASPARTATE AMINO TRANSFERASE 15 U/L (10-37); BILIRUBIN,TOTAL 0.2 MG/DL (0.1-1.0); BLOOD UREA NITROGEN 23 MG/DL (7-18); BUN/CREATININE RATIO 25.8 (5.4-32.0); CALCIUM 8.3 MG/DL (8.5-10.1); CHLORIDE 104 MMOL/L (99-107); CREATININE 0.89 MG/DL (0.60-1.10); GLUCOSE 116 MG/DL (70-104); LIPASE 217 U/L (73-393); SODIUM 138 MMOL/L (135-145); TOTAL CARBON DIOXIDE 25.4 MMOL/L (24-32); TOTAL PROTEIN 6.8 G/DL (6.4-8.2); eGFR > 90 ML/MIN
[2022-02-16 05:13] LABS: BASOPHILS # (AUTO) 0.1 X10'3 (0-0.2); BASOPHILS % (AUTO) 0.7 % (0-1); EOSINOPHILS # (AUTO) 0.2 X10'3 (0-0.9); EOSINOPHILS % (AUTO) 1.3 % (0-6); HEMATOCRIT 38.9 % (42.0-52.0); LYMPHOCYTES # (AUTO) 1.9 X10'3 (1.1-4.8); LYMPHOCYTES % (AUTO) 14.3 % (21-51); MEAN CORPUSCULAR HEMOGLOBIN 28.1 PG (27.0-31.0); MEAN CORPUSCULAR HGB CONC 33.3 g/dL (33.0-36.5); MEAN CORPUSCULAR VOLUME 84.2 FL (78-98); MEAN PLATELET VOLUME 6.9 FL (7.4-10.4); MONOCYTES # (AUTO) 0.6 X10'3 (0-0.9); MONOCYTES % (AUTO) 4.6 % (2-12); NEUTROPHILS # (AUTO) 10.7 X10'3 (1.8-7.7); NEUTROPHILS % (AUTO) 79.1 % (42-75); PLATELET COUNT 355 X10'3 (140-440); RED BLOOD COUNT 4.62 X10'6 (4.70-6.10); RED CELL DISTRIBUTION WIDTH 15.1 % (11.5-14.5); WHITE BLOOD COUNT 13.5 X10'3 (4.5-11.0)
== END 2022-02-16 05:38 | disposition home or self-care (01) ==
LOC: ER 03:30
DX: R10.9 Unspecified abdominal pain (principal); F15.20 Other stimulant dependence, uncomplicated
CPT/HCPCS: 36415; 80053; 83690; 85025; 99283; J7030

== ENCOUNTER 2022-02-26 06:55 | Inpatient (IN) | payer MEDICAID ==
[~2022-02-26] VITALS: Ht 175.3 cm; Wt 77.3 kg
[~2022-02-26 06:55] MED LIST changes: +CIPR500T5 PO; +ESCI20TA39 PO; +FENO145T26 PO; +HYDR-3972 PO; +METR-159 PO; +OMEP40CA21 PO
[2022-02-26 07:46] LABS: BASOPHILS # (AUTO) 0.1 X10'3 (0-0.2); BASOPHILS % (AUTO) 0.3 % (0-1); EOSINOPHILS % (AUTO) 0.1 % (0-6); HEMATOCRIT 47.1 % (42.0-52.0); HEMOGLOBIN 15.5 g/dl (14.0-17.9); LYMPHOCYTES # (AUTO) 1.4 X10'3 (1.1-4.8); LYMPHOCYTES % (AUTO) 8.1 % (21-51); MEAN CORPUSCULAR HEMOGLOBIN 27.5 PG (27.0-31.0); MEAN CORPUSCULAR VOLUME 83.3 FL (78-98); MEAN PLATELET VOLUME 6.9 FL (7.4-10.4); MONOCYTES # (AUTO) 0.6 X10'3 (0-0.9); MONOCYTES % (AUTO) 3.5 % (2-12); NEUTROPHILS # (AUTO) 14.9 X10'3 (1.8-7.7); PLATELET COUNT 540 X10'3 (140-440); RED BLOOD COUNT 5.65 X10'6 (4.70-6.10); RED CELL DISTRIBUTION WIDTH 15.5 % (11.5-14.5)
[2022-02-26 08:03] LABS: ALANINE AMINOTRANSFERASE 27 U/L (12-78); ALBUMIN 4.2 G/DL (3.4-5.0); ALKALINE PHOSPHATASE 160 IU/L (46-116); AMYLASE 103 U/L (25-115); ANION GAP 17 (8-16); ASPARTATE AMINO TRANSFERASE 22 U/L (10-37); BILIRUBIN,TOTAL 0.2 MG/DL (0.1-1.0); BLOOD UREA NITROGEN 20 MG/DL (7-18); CALCIUM 9.8 MG/DL (8.5-10.1); CHLORIDE 101 MMOL/L (99-107); GLUCOSE 153 MG/DL (70-104); LIPASE 328 U/L (73-393); POTASSIUM 3.7 MMOL/L (3.5-5.1); SODIUM 140 MMOL/L (135-145); TOTAL CARBON DIOXIDE 21.9 MMOL/L (24-32); TOTAL PROTEIN 8.5 G/DL (6.4-8.2); eGFR 83 ML/MIN
[2022-02-26] MEDS ORDERED: ondansetron/PF 4mg/2ml inj IV ONE (08:55)
[2022-02-26 09:03] LABS: CLARITY,URINE SLIGHTLY CLOUDY (Clear); COLOR,URINE YELLOW (Yellow); GLUCOSE, URINE NEGATIVE (Neg); KETONES,URINE NEGATIVE (Neg); LEUKOCYTE ESTERASE ,URINE NEGATIVE (Neg); NITRITES, URINE NEGATIVE (Neg); OCCULT BLOOD,URINE NEGATIVE (Neg); PH,URINE 8.5 (4.8-8.0); PROTEIN,URINE 30 mg/dl (Neg); UA COLLECTION TYPE CLN CATCH MIDSTREAM; UROBILINOGEN,URINE 0.2 E.U/dL (0.2-1.0)
[2022-02-26] MEDS ORDERED: morphine 4 MG/ML inj SYRINge IV ONE (09:10)
[2022-02-26] MEDS ORDERED: iohexol 350MG/ML 100ml bottle IV ONE (09:24)
--- NOTE | 2022-02-26 09:30 | NUR ---
pt to CT
--- NOTE | 2022-02-26 09:41 | NUR ---
pt return from ct
[2022-02-26] MEDS ORDERED: ringers solution, lacted 1,000 ML IV ONE (09:55)
[2022-02-26] MEDS ORDERED: metoclopramide 5 mg/ml inj IV ONE (09:55)
[2022-02-26 10:01] LABS: SQUAMOUS EPITHELIAL CELL,UR FEW /LPF (FEW)
[2022-02-26 10:03] LABS: AMORPHOUS PHOSPHATES 3+; RBC,URINE 20-50 /HPF (0-2)
[2022-02-26 10:04] LABS: BACTERIA,URINE FEW /HPF (Neg); WBC,URINE 0-4 /HPF (0-4)
[2022-02-26] MEDS ORDERED: CefTRIAXone/D5W-Rocephin 1gm 50 ML IV ONE (11:15)
[2022-02-26] MEDS ORDERED: metroNIDAZOLE-Flagyl 500mg/NS 100 ML IV ONE (11:15)
[2022-02-26] MEDS ORDERED: acetaminophen 325mg tablet PO PRN ×2 (12:20)
[2022-02-26] MEDS ORDERED: magnesium Cl slow-release 64mg tablet PO PRN (12:20)
[2022-02-26] MEDS ORDERED: magnesium 2GM in 50ml NS 50 ML IV PRN (12:20)
[2022-02-26] MEDS ORDERED: ondansetron/PF 4mg/2ml inj IV PRN (12:20)
[2022-02-26] MEDS ORDERED: magnesium hydroxide 30ml (MOM) UD suspension PO PRN (12:20)
[2022-02-26] MEDS ORDERED: HYDROmorphone/PF 0.2 MG/ML SYRINGE IV PRN (12:20)
[2022-02-26] MEDS ORDERED: potassium CL 10mEq/100ml bag 100 ML IV PRN (12:20)
[2022-02-26] MEDS ORDERED: magnesium 4gm in 100ml NS 100 ML IV PRN (12:20)
[2022-02-26] MEDS ORDERED: mag hydrox/Alum hydrox/simeth 30ml oral suspension PO PRN (12:20)
[2022-02-26] MEDS ORDERED: ondansetron 4mg rapidly disintigrating tab PO PRN (12:20)
[2022-02-26] MEDS ORDERED: HYDROcodone/acetaminophen 5mg/325mg tablet PO PRN (12:20)
[2022-02-26] MEDS ORDERED: POTASSIUM BICARB 20meq eff tab 20 MEQ TABLET.EFF PO PRN ×2 (12:20)
[2022-02-26 12:40] LABS: MAGNESIUM 1.7 MG/DL (1.5-2.4)
[2022-02-26] MEDS: normal saline 1000ml 1,000 ML IV SCH ×2 (12:49→22:04)
[2022-02-26] MEDS: metoclopramide 5 mg/ml inj IV PRN ×2 (13:04→21:06)
[2022-02-26] MEDS: HYDROcodone/acetaminophen 10/325mg tab PO PRN ×3 (13:05→21:06)
[2022-02-26] MEDS: piperacillin/tazo 3.375gm/50ml 50 ML IV SCH (16:38)
[2022-02-26] MEDS: K and/or MAG REPLACEMENT MC SCH (20:00)
[2022-02-26] MEDS: docusate sod 100mg capsule PO SCH (20:16)
--- NOTE | 2022-02-26 20:40 | NUR ---
Received report from Pritesh TORRE from ED. Patient came up via wheelchair and able to get into bed. Bed placed in locked & low position. Call light within reach.
[2022-02-26 20:49] VITALS: BP 132/76
[2022-02-26] MEDS ORDERED: temazepam 15mg capsule PO PRN (21:00)
[2022-02-26] MEDS: ALPRAZolam 0.5mg tablet PO PRN (22:17)
[2022-02-27] MEDS: piperacillin/tazo 3.375gm/50ml 50 ML IV SCH ×4 (00:12→23:48)
[2022-02-27] MEDS: HYDROcodone/acetaminophen 10/325mg tab PO PRN ×2 (01:03→05:01)
--- NOTE | 2022-02-27 06:00 | NUR ---
Patient in room ORTHO 4015. I have received report from Antoinette TORRE and had the opportunity to ask questions and assume patient care.
--- NOTE | 2022-02-27 06:42 | NUR ---
Problems reprioritized. Patient report given, questions answered & plan of care reviewed with Riana TORRE.
--- NOTE | 2022-02-27 06:46 | NUR ---
Patient in room ORTHO 4015. I have received report from BERLIN TORRE and had the opportunity to ask questions and assume patient care.
[2022-02-27 06:53] VITALS: BP 137/74
[2022-02-27 07:17] LABS: BASOPHILS % (AUTO) 0.3 % (0-1); EOSINOPHILS # (AUTO) 0.1 X10'3 (0-0.9); EOSINOPHILS % (AUTO) 0.9 % (0-6); HEMOGLOBIN 13.3 g/dl (14.0-17.9); LYMPHOCYTES # (AUTO) 1.7 X10'3 (1.1-4.8); LYMPHOCYTES % (AUTO) 18.2 % (21-51); MEAN CORPUSCULAR HEMOGLOBIN 28.6 PG (27.0-31.0); MEAN CORPUSCULAR HGB CONC 34.1 g/dL (33.0-36.5); MEAN CORPUSCULAR VOLUME 83.9 FL (78-98); MEAN PLATELET VOLUME 6.9 FL (7.4-10.4); MONOCYTES # (AUTO) 0.5 X10'3 (0-0.9); MONOCYTES % (AUTO) 5.9 % (2-12); NEUTROPHILS # (AUTO) 6.9 X10'3 (1.8-7.7); NEUTROPHILS % (AUTO) 74.7 % (42-75); PLATELET COUNT 356 X10'3 (140-440); RED BLOOD COUNT 4.65 X10'6 (4.70-6.10); RED CELL DISTRIBUTION WIDTH 16.2 % (11.5-14.5); WHITE BLOOD COUNT 9.3 X10'3 (4.5-11.0)
[2022-02-27 07:23] LABS: ALANINE AMINOTRANSFERASE 24 U/L (12-78); ALBUMIN 3.1 G/DL (3.4-5.0); ALBUMIN/GLOBULIN RATIO 0.8 (1.1-1.5); ALKALINE PHOSPHATASE 126 IU/L (46-116); ANION GAP 11 (8-16); ASPARTATE AMINO TRANSFERASE 21 U/L (10-37); BILIRUBIN,TOTAL 0.2 MG/DL (0.1-1.0); BLOOD UREA NITROGEN 12 MG/DL (7-18); BUN/CREATININE RATIO 14.3 (5.4-32.0); CALCIUM 8.5 MG/DL (8.5-10.1); CHLORIDE 104 MMOL/L (99-107); CREATININE 0.84 MG/DL (0.60-1.10); GLUCOSE 108 MG/DL (70-104); MAGNESIUM 1.8 MG/DL (1.5-2.4); POTASSIUM 3.7 MMOL/L (3.5-5.1); SODIUM 140 MMOL/L (135-145); TOTAL CARBON DIOXIDE 25.4 MMOL/L (24-32); TOTAL PROTEIN 7.2 G/DL (6.4-8.2); eGFR > 90 ML/MIN
[2022-02-27] MEDS: docusate sod 100mg capsule PO SCH ×2 (07:47→20:02)
[2022-02-27] MEDS: fenofibrate 145mg tablet PO SCH (07:47)
[2022-02-27] MEDS: ESCITALOPRAM OXALATE 5 MG TABLET PO SCH (07:47)
[2022-02-27] MEDS: atorvastatin 20mg tablet PO SCH (07:47)
[2022-02-27] MEDS: pantoprazole 40mg Tablet.DR PO SCH (07:47)
[2022-02-27] MEDS: ALPRAZolam 0.5mg tablet PO PRN ×2 (07:47→20:02)
[2022-02-27] MEDS: enoxaparin 40mg/0.4ml syringe SUBCUT SCH (07:51)
[2022-02-27] MEDS: normal saline 1000ml 1,000 ML IV SCH ×2 (08:00→18:54)
[2022-02-27] MEDS: K and/or MAG REPLACEMENT MC SCH ×2 (08:00→20:00)
[2022-02-27] MEDS: oxyCODONE/APAP 5-325mg tablet PO PRN ×2 (09:50→13:59)
[2022-02-27 10:00] VITALS: BP 134/65
--- NOTE | 2022-02-27 10:49 | NUR ---
Malnutrition Consult: Pt admit DX sepsis w/ leukocytosis, moderate sized colonic fistula, acute diverticulitis, hx N/V w/ abdominal pain per EMR. Pt reports 14-23lb wt loss past 3 months per RN Malnutrition Screen. Pt seen by RD at bedside. Pt reports typically eats well at home has changed diet past few weeks given diverticulitis DX though has had flare-up now twice in two weeks impacting PO ability. Pt wt hx fluctuates between 66.55kg last January to 90kg last May and 77.27kg this admit. Unsure of wt hx though pt appears WD/WN during RD visit, has no edema/wounds, and normal strength per EMR. Likely decreased intake BIOLOGICAL AIDE given hx but pt lacks minimum malnutrition criteria at this time. Pt reports has not had diet ed for diverticulitis; RD provided written/verbal diverticulitis/diverticulosis diet eds w/ fiber list of foods and RD contact information. RD encouraged pt to contact dietitian's office if further questions/concerns. Pt reports hx celiacs does not eat gluten; dietary notified. PO pending for initial clear liquids meals. LBM 02/25 normal BM's BIOLOGICAL AIDE per pt. Will continue to monitor for PO diet tolerance/advancement and further nutrition intervention needs this admit. Rec: 1. advance diet as medically indicated to low-residue/gluten-free 2. monitor for PO tolerance and ONS needs as diet advances 3. bowel care per rx 4. weekly wts Addendum: 02/27/22 at [address] Amended: Links added.
[2022-02-27] MEDS: HYDROmorphone inj. 0.5 MG/0.5 ML DISP.SYRIN IV PRN ×3 (12:52→21:27)
--- NOTE | 2022-02-27 15:00 | NUR ---
Patient appears very "antoni" stating he has 10/10 pain but laughing on phone at the same time. Given xanax for "as stated extreme anxiety" . medicated then for pain 9/10 with percocet as requested change from Dr meléndez, stating Geronimo doesnt work. will continue to monitor. patient ambulating in hallway x3.
[2022-02-27 18:00] VITALS: BP 167/87
--- NOTE | 2022-02-27 18:30 | NUR ---
Pt in 5277F Problems reprioritized. Patient report given, questions answered & plan of care reviewed with Antoinette TORRE.
[2022-02-27] MEDS: oxyCODONE/APAP 10/325mg tablet PO PRN (18:50)
[2022-02-27 22:00] VITALS: BP 101/45
[2022-02-28] MEDS: oxyCODONE/APAP 10/325mg tablet PO PRN ×2 (00:58→10:09)
[2022-02-28] MEDS: HYDROmorphone inj. 0.5 MG/0.5 ML DISP.SYRIN IV PRN ×3 (02:32→13:23)
[2022-02-28] MEDS: normal saline 1000ml 1,000 ML IV SCH (04:05)
[2022-02-28 05:20] LABS: BASOPHILS % (AUTO) 0.4 % (0-1); EOSINOPHILS # (AUTO) 0.2 X10'3 (0-0.9); EOSINOPHILS % (AUTO) 3.7 % (0-6); HEMATOCRIT 40.2 % (42.0-52.0); HEMOGLOBIN 13.3 g/dl (14.0-17.9); LYMPHOCYTES # (AUTO) 1.7 X10'3 (1.1-4.8); LYMPHOCYTES % (AUTO) 26.2 % (21-51); MEAN CORPUSCULAR HEMOGLOBIN 27.9 PG (27.0-31.0); MEAN CORPUSCULAR HGB CONC 33.1 g/dL (33.0-36.5); MEAN CORPUSCULAR VOLUME 84.4 FL (78-98); MONOCYTES # (AUTO) 0.4 X10'3 (0-0.9); MONOCYTES % (AUTO) 6.4 % (2-12); NEUTROPHILS # (AUTO) 4.2 X10'3 (1.8-7.7); NEUTROPHILS % (AUTO) 63.3 % (42-75); PLATELET COUNT 297 X10'3 (140-440); RED BLOOD COUNT 4.76 X10'6 (4.70-6.10); RED CELL DISTRIBUTION WIDTH 15.2 % (11.5-14.5); WHITE BLOOD COUNT 6.7 X10'3 (4.5-11.0)
[2022-02-28 05:35] LABS: ALANINE AMINOTRANSFERASE 25 U/L (12-78); ALBUMIN/GLOBULIN RATIO 0.8 (1.1-1.5); ALKALINE PHOSPHATASE 124 IU/L (46-116); ANION GAP 10 (8-16); ASPARTATE AMINO TRANSFERASE 18 U/L (10-37); BILIRUBIN,TOTAL 0.3 MG/DL (0.1-1.0); BLOOD UREA NITROGEN 11 MG/DL (7-18); CALCIUM 8.8 MG/DL (8.5-10.1); CHLORIDE 104 MMOL/L (99-107); CREATININE 0.92 MG/DL (0.60-1.10); GLUCOSE 116 MG/DL (70-104); MAGNESIUM 1.8 MG/DL (1.5-2.4); POTASSIUM 3.8 MMOL/L (3.5-5.1); SODIUM 141 MMOL/L (135-145); TOTAL CARBON DIOXIDE 27.5 MMOL/L (24-32); eGFR > 90 ML/MIN
--- NOTE | 2022-02-28 05:45 | NUR ---
ADJUSTMENT EXAMINER documentation: I have reviewed and agree with all interventions, assessments performed and documented by Tiki HERNANDEZ.
--- NOTE | 2022-02-28 06:23 | NUR ---
Problems reprioritized. Patient report given, questions answered & plan of care reviewed with NICHO Kay.
[2022-02-28] MEDS: K and/or MAG REPLACEMENT MC SCH (08:00)
[2022-02-28] MEDS: ESCITALOPRAM OXALATE 5 MG TABLET PO SCH (08:10)
[2022-02-28] MEDS: docusate sod 100mg capsule PO SCH (08:10)
[2022-02-28] MEDS: piperacillin/tazo 3.375gm/50ml 50 ML IV SCH (08:10)
[2022-02-28] MEDS: fenofibrate 145mg tablet PO SCH (08:10)
[2022-02-28] MEDS: atorvastatin 20mg tablet PO SCH (08:10)
[2022-02-28] MEDS: pantoprazole 40mg Tablet.DR PO SCH (08:11)
[2022-02-28] MEDS: enoxaparin 40mg/0.4ml syringe SUBCUT SCH (08:14)
[2022-02-28] MEDS: ALPRAZolam 0.5mg tablet PO PRN (10:06)
--- NOTE | 2022-02-28 11:38 | NUR ---
PAGER ID: [phone] MESSAGE: Eliza [phone] RE: Nawaf Chavis room 4017H would like to talk to you about getting Percoset prescribed at discharge.
--- NOTE | 2022-02-28 13:06 | NUR ---
PAGER ID: [phone] MESSAGE: Eliza [phone] RE: Nawaf Chavis room 4015B - tolerated soft food with no discomfort.
[2022-02-28] MEDS ORDERED: HYDR-3972 PO ×3 (13:13→16:54)
[2022-02-28] MEDS ORDERED: AMOX-117 PO (13:13)
[2022-02-28 13:51] VITALS: BP 131/71
--- NOTE | 2022-02-28 14:16 | NUR ---
Patient was discharged at 1409 with instructions and verbalizing understanding of instructions, going home accompanied by friend via private vehicle. All lines and tubes have been removed including PIV with cannula intact. Medications have been escripted to pharmacy, education has been provided and all questions have been answered. Patient has been instructed to follow up with his PCP in 1 week and schedule a colonoscopy in 6 weeks. Patient is stable and appropriate for discharge.
== END 2022-02-28 14:54 | disposition home or self-care (01) | DRG 720 ==
LOC: ER 06:55 → ED HOLD 12:26 → ORTHO 4S 20:45
PROVIDERS: ADMIT Family Medicine; ATTEND Family Medicine
PROC: BW211ZZ Computerized Tomography (CT Scan) of Abdomen and Pelvis using Low Osmolar Contrast (ICD-10-PCS; principal; 2022-02-26)
DX: A41.9 Sepsis, unspecified organism (principal); K65.1 Peritoneal abscess; E87.2 Acidosis; K63.2 Fistula of intestine; K57.80 Diverticulitis of intestine, part unspecified, with perforation and abscess without bleeding; K57.90 Diverticulosis of intestine, part unspecified, without perforation or abscess without bleeding; E78.5 Hyperlipidemia, unspecified; K52.9 Noninfective gastroenteritis and colitis, unspecified; F32.A Depression, unspecified; F41.9 Anxiety disorder, unspecified; F11.90 Opioid use, unspecified, uncomplicated; Z79.899 Other long term (current) drug therapy
CPT/HCPCS: 36415; 71045; 74177; 80053; 81001; 82150; 83605; 83690; 83735; 84145; 85025; 87040; 87081; 96361; 96374; 96375; 99285; G0378; J0696; J1170; J1650; J2270; J2405; J2543; J2765; J3490; J7030; J7120; Q9967

== ENCOUNTER 2022-03-11 06:36 | Emergency (ER) | payer MEDICAID ==
[~2022-03-11] VITALS: Ht 175.3 cm; Wt 77.3 kg
[~2022-03-11 06:36] MED LIST changes: +AMOX-117 PO; -CIPR500T5 PO; -METR-159 PO; -PANT-47 PO
[2022-03-11 07:00] LABS: CLARITY,URINE CLEAR (Clear); COLOR,URINE YELLOW (Yellow); GLUCOSE, URINE NEGATIVE (Neg); KETONES,URINE NEGATIVE (Neg); LEUKOCYTE ESTERASE ,URINE NEGATIVE (Neg); NITRITES, URINE NEGATIVE (Neg); OCCULT BLOOD,URINE NEGATIVE (Neg); PROTEIN,URINE NEGATIVE (Neg); UROBILINOGEN,URINE 0.2 E.U/dL (0.2-1.0)
[2022-03-11 07:22] LABS: UA COLLECTION TYPE NON-SPECIFIED
[2022-03-11 08:01] LABS: BASOPHILS % (AUTO) 0.4 % (0-1); EOSINOPHILS # (AUTO) 0.1 X10'3 (0-0.9); EOSINOPHILS % (AUTO) 0.9 % (0-6); HEMATOCRIT 43.6 % (42.0-52.0); HEMOGLOBIN 14.8 g/dl (14.0-17.9); LYMPHOCYTES # (AUTO) 1.5 X10'3 (1.1-4.8); LYMPHOCYTES % (AUTO) 12.7 % (21-51); MEAN CORPUSCULAR HEMOGLOBIN 28.4 PG (27.0-31.0); MEAN CORPUSCULAR HGB CONC 33.9 g/dL (33.0-36.5); MEAN CORPUSCULAR VOLUME 83.6 FL (78-98); MEAN PLATELET VOLUME 7.4 FL (7.4-10.4); MONOCYTES # (AUTO) 0.5 X10'3 (0-0.9); MONOCYTES % (AUTO) 4.3 % (2-12); NEUTROPHILS # (AUTO) 9.8 X10'3 (1.8-7.7); NEUTROPHILS % (AUTO) 81.7 % (42-75); PLATELET COUNT 334 X10'3 (140-440); RED BLOOD COUNT 5.22 X10'6 (4.70-6.10); RED CELL DISTRIBUTION WIDTH 15.4 % (11.5-14.5)
[2022-03-11 08:17] LABS: ALANINE AMINOTRANSFERASE 18 U/L (12-78); ALKALINE PHOSPHATASE 160 IU/L (46-116); ANION GAP 10 (8-16); ASPARTATE AMINO TRANSFERASE 18 U/L (10-37); BILIRUBIN,TOTAL 0.3 MG/DL (0.1-1.0); BLOOD UREA NITROGEN 12 MG/DL (7-18); BUN/CREATININE RATIO 15.4 (5.4-32.0); CALCIUM 9.3 MG/DL (8.5-10.1); CHLORIDE 102 MMOL/L (99-107); CREATININE 0.78 MG/DL (0.60-1.10); GLUCOSE 124 MG/DL (70-104); POTASSIUM 3.7 MMOL/L (3.5-5.1); SODIUM 136 MMOL/L (135-145); TOTAL CARBON DIOXIDE 24.4 MMOL/L (24-32); TOTAL PROTEIN 8.1 G/DL (6.4-8.2); eGFR > 90 ML/MIN
[2022-03-11 08:18] LABS: LIPASE 261 U/L (73-393)
[2022-03-11] MEDS ORDERED: famotidine/PF 10 mg/ml inj IV ONE (10:35)
[2022-03-11] MEDS ORDERED: normal saline 1000ml 1,000 ML IV ONE (10:35)
[2022-03-11] MEDS ORDERED: proCHLORperazine 10 MG/2 ml inj IV ONE (10:35)
[2022-03-11] MEDS ORDERED: ondansetron/PF 4mg/2ml inj IV ONE (10:35)
[2022-03-11] MEDS ORDERED: iohexol 350MG/ML 100ml bottle IV ONE (10:50)
[2022-03-11 11:28] LABS: URINE AMPHETAMINE SCREEN NEGATIVE (Neg); URINE BARBITUATE SCREEN NEGATIVE (Neg); URINE BENZODIAZEPINES SCREEN NEGATIVE (Neg); URINE CANNABINOID SCREEN POSITIVE (Neg); URINE COCAINE SCREEN NEGATIVE (Neg); URINE METHADONE SCREEN NEGATIVE (Neg); URINE OPIATE SCREEN NEGATIVE (Neg); URINE PHENCYCLIDINE SCREEN NEGATIVE (Neg)
[2022-03-11] MEDS ORDERED: ketorolac trometh. 30mg/ml inj. IV ONE (11:40)
--- NOTE | 2022-03-11 11:46 | NUR ---
IN TO MEDICATE PT WITH KATERYNA, COMPAZINE, AND PEPCID. PT STATES "AREN'T YOU GOING TO GIVE ME ANY PAIN MEDS?" PT INFORMED THE DR ORDERED THE ABOVE MEDS AND TORADOL. PT STATES "I DONT WANT TORADOL THE SHIT DOESN'T WORK FOR ME, I JUST GOT OFF DILAUDID AND MORPHINE AND A BUNCH OF OTHER SHIT." IN FORMED PT THIS IS WHAT THE DR ORDERED. PT STATES MY PAIN NAUSEA IS BECAUSE OF MY PAIN AND NOT THE OTHER WAY AROUND. ASKED PT IF HE STILL WANTED THE ABOVE MEDS HE STATED YES BUT NOT TORADOL. PT ASKED HOW LONG DO I HAVE TO WAIT TO SEE THE MEDS WORK BEFORE I CAN GET SOMTHING ELSE LIKE 30MIN? INFORMED PT IT IS UP TO THE DR. PT REQUESTED TO SEEN DR WILLIAM. INFORMED DR WILLIAM OF THE ABOVE. HE WILL SEE PT ONCE CT RESULTS ARE BACK, PT INFOREMED
[2022-03-11 12:23] VITALS: BP 158/99
[2022-03-11] MEDS ORDERED: morphine 4 MG/ML inj SYRINge IV ONE (13:30)
[2022-03-11] MEDS ORDERED: metoclopramide 5 mg/ml inj IV ONE (15:55)
[2022-03-11] MEDS ORDERED: oxyCODONE/APAP 5-325mg tablet PO ONE (16:05)
[2022-03-11] MEDS ORDERED: AMOX-117 PO (16:22)
[2022-03-11] MEDS ORDERED: PROC-8 PO (16:23)
== END 2022-03-11 16:40 | disposition home or self-care (01) ==
LOC: ER 06:36
DX: K57.80 Diverticulitis of intestine, part unspecified, with perforation and abscess without bleeding (principal); E78.00 Pure hypercholesterolemia, unspecified; F31.9 Bipolar disorder, unspecified; Z88.8 Allergy status to other drugs, medicaments and biological substances; Z79.899 Other long term (current) drug therapy
CPT/HCPCS: 36415; 74177; 80053; 80305; 81003; 83690; 84145; 85025; 96361; 96374; 96375; 99285; J0780; J2270; J2405; J2765; J3490; J7030; Q9967

== ENCOUNTER 2023-02-23 07:41 | Emergency (ER) | payer MEDICAID ==
[~2023-02-23] VITALS: Ht 175.3 cm; Wt 85.0 kg
[~2023-02-23 07:41] MED LIST changes: -AMOX-117 PO; -HYDR-3972 PO; +PROC-8 PO
[2023-02-23] MEDS ORDERED: pantoprazole 40 MG vial IV ONE (08:15)
[2023-02-23] MEDS ORDERED: proCHLORperazine 10 MG/2 ml inj IV ONE (08:15)
[2023-02-23] MEDS ORDERED: LORazepam 2 mg/ml vial IV ONE (08:15)
[2023-02-23] MEDS ORDERED: normal saline 1000ML IV soln IVB ONE (08:15)
[2023-02-23] MEDS ORDERED: pantoprazole 40MG/NS 100ML BAG 100 ML IV ONE (08:25)
[2023-02-23] MEDS: morphine 2 MG/ML inj. syringe IV PRN ×4 (08:29→12:13)
[2023-02-23 08:47] LABS: BASOPHILS % (AUTO) 0.3 % (0-1); EOSINOPHILS % (AUTO) 0.3 % (0-6); HEMATOCRIT 52.3 % (42.0-52.0); LYMPHOCYTES % (AUTO) 6.5 % (21-51); MEAN CORPUSCULAR HEMOGLOBIN 31.3 PG (27.0-31.0); MEAN CORPUSCULAR HGB CONC 35.1 g/dL (33.0-36.5); MEAN CORPUSCULAR VOLUME 89.4 FL (78-98); MEAN PLATELET VOLUME 7.5 FL (7.4-10.4); MONOCYTES # (AUTO) 0.6 X10'3 (0-0.9); MONOCYTES % (AUTO) 3.7 % (2-12); NEUTROPHILS # (AUTO) 13.3 X10'3 (1.8-7.7); NEUTROPHILS % (AUTO) 89.2 % (42-75); PLATELET COUNT 273 X10'3 (140-440); RED BLOOD COUNT 5.85 X10'6 (4.70-6.10); RED CELL DISTRIBUTION WIDTH 14.5 % (11.5-14.5); WHITE BLOOD COUNT 14.9 X10'3 (4.5-11.0)
[2023-02-23 08:57] LABS: HEMOGLOBIN 18.3 g/dl (14.0-17.9)
[2023-02-23 09:02] LABS: ALANINE AMINOTRANSFERASE 34 U/L (12-78); ALKALINE PHOSPHATASE 71 IU/L (46-116); ANION GAP 16 (8-16); BILIRUBIN,TOTAL 0.5 MG/DL (0.1-1.0); BLOOD UREA NITROGEN 16 MG/DL (7-18); BUN/CREATININE RATIO 13.2 (10.0-20.0); CALCIUM 9.3 MG/DL (8.5-10.1); CHLORIDE 98 MMOL/L (99-107); CREATININE 1.21 MG/DL (0.60-1.10); LIPASE 308 U/L (73-393); SODIUM 137 MMOL/L (135-145); TOTAL CARBON DIOXIDE 23.4 MMOL/L (24-32); TOTAL PROTEIN 8.2 G/DL (6.4-8.2); eCRCL 80 ML/MIN; eGFR 66 ML/MIN
[2023-02-23 09:10] LABS: GLUCOSE 169 MG/DL (70-104); POTASSIUM 3.6 MMOL/L (3.5-5.1)
[2023-02-23 09:17] LABS: ASPARTATE AMINO TRANSFERASE 21 U/L (10-37)
[2023-02-23 09:55] VITALS: TEMP 98.5
[2023-02-23] MEDS ORDERED: iohexol 300mg/ml 100ml inj. ONE (10:35)
[2023-02-23] MEDS ORDERED: levoFLOXACIN-Levaquin 750MG/D5 150 ML IV ONE (12:00)
[2023-02-23] MEDS ORDERED: metroNIDAZOLE-Flagyl 500mg/NS 100 ML IV ONE (12:00)
[2023-02-23] MEDS ORDERED: LEVO-65 PO (12:12)
[2023-02-23] MEDS ORDERED: METR-159 PO (12:12)
--- NOTE | 2023-02-23 13:24 | NUR ---
Pt states he is not able to void. MD has been notified. Pt then left the room and went to the RR.
[2023-02-23 14:03] VITALS: BP 128/77; PULSE 94; RESP 18; O2SAT 95
== END 2023-02-23 14:59 | disposition home or self-care (01) ==
LOC: ER 07:42
DX: K57.92 Diverticulitis of intestine, part unspecified, without perforation or abscess without bleeding (principal); R10.12 Left upper quadrant pain; E78.00 Pure hypercholesterolemia, unspecified; I10 Essential (primary) hypertension; F17.200 Nicotine dependence, unspecified, uncomplicated; Z88.8 Allergy status to other drugs, medicaments and biological substances; Z79.2 Long term (current) use of antibiotics; Z79.899 Other long term (current) drug therapy
CPT/HCPCS: 36415; 74177; 80053; 83605; 83690; 85025; 96365; 96367; 96375; 96376; 99285; C9113; J0780; J1956; J2060; J2270; J3490; J7030; Q9967

== ENCOUNTER 2024-06-14 22:57 | Inpatient (IN) | payer MEDICAID ==
[~2024-06-14] VITALS: Ht 160 cm; Wt 83.2 kg
[2024-06-15 00:36] LABS: BASOPHILS # (AUTO) 0.1 X10'3 (0-0.2); EOSINOPHILS # (AUTO) 0.1 X10'3 (0-0.9); MEAN CORPUSCULAR HEMOGLOBIN 30.4 PG (27.0-31.0); MEAN PLATELET VOLUME 6.4 FL (7.4-10.4); RED CELL DISTRIBUTION WIDTH 14.7 % (11.5-14.5)
[2024-06-15 00:37] LABS: BASOPHILS % (AUTO) 0.4 % (0-1); EOSINOPHILS % (AUTO) 0.4 % (0-6); HEMATOCRIT 41.1 % (42.0-52.0); HEMOGLOBIN 14.3 g/dl (14.0-17.9); LYMPHOCYTES # (AUTO) 5.1 X10'3 (1.1-4.8); LYMPHOCYTES % (AUTO) 21.2 % (21-51); MEAN CORPUSCULAR HGB CONC 34.8 g/dL (33.0-36.5); MEAN CORPUSCULAR VOLUME 87.5 FL (78-98); MONOCYTES # (AUTO) 1.5 X10'3 (0-0.9); MONOCYTES % (AUTO) 6.2 % (2-12); NEUTROPHILS # (AUTO) 17.3 X10'3 (1.8-7.7); NEUTROPHILS % (AUTO) 71.8 % (42-75); PLATELET COUNT 661 X10'3 (140-440); WHITE BLOOD COUNT 24.1 X10'3 (4.5-11.0)
[2024-06-15 00:52] LABS: ALBUMIN 2.4 G/DL (3.4-5.0); ANION GAP 10 (8-16); BLOOD UREA NITROGEN 23 MG/DL (7-18); BUN/CREATININE RATIO 14.6 (10.0-20.0); CHLORIDE 95 MMOL/L (99-107); CREATININE 1.57 MG/DL (0.60-1.10); GLUCOSE 105 MG/DL (70-104); POTASSIUM 3.8 MMOL/L (3.5-5.1); PRO BRAIN NATRIURETIC PEPTIDE 375 PG/ML (0-125); SODIUM 133 MMOL/L (135-145); TOTAL CARBON DIOXIDE 28.3 MMOL/L (24-32); eCRCL 49 ML/MIN; eGFR 49 ML/MIN
[2024-06-15 00:55] LABS: TOTAL CELLS COUNTED 100
[2024-06-15 00:56] LABS: PLATELET ESTIMATE INCREASED
[2024-06-15] MEDS ORDERED: iohexol 300mg/ml 100ml inj. ONE (01:53)
[2024-06-15 02:15] LABS: BASOPHILS % (AUTO) 0.4 % (0-1); EOSINOPHILS % (AUTO) 0.4 % (0-6); HEMATOCRIT 41.1 % (42.0-52.0); HEMOGLOBIN 14.3 g/dl (14.0-17.9); LYMPHOCYTES # (AUTO) 5.1 X10'3 (1.1-4.8); LYMPHOCYTES % (AUTO) 21.2 % (21-51); MEAN CORPUSCULAR HEMOGLOBIN 30.4 PG (27.0-31.0); MEAN CORPUSCULAR HGB CONC 34.8 g/dL (33.0-36.5); MEAN CORPUSCULAR VOLUME 87.5 FL (78-98); MEAN PLATELET VOLUME 6.4 FL (7.4-10.4); MONOCYTES # (AUTO) 1.5 X10'3 (0-0.9); MONOCYTES % (AUTO) 6.2 % (2-12); NEUTROPHILS # (AUTO) 17.3 X10'3 (1.8-7.7); NEUTROPHILS % (AUTO) 71.8 % (42-75); PLATELET COUNT 661 X10'3 (140-440); RED CELL DISTRIBUTION WIDTH 14.7 % (11.5-14.5); WHITE BLOOD COUNT 24.1 X10'3 (4.5-11.0)
[2024-06-15 02:16] LABS: BASOPHILS # (AUTO) 0.1 X10'3 (0-0.2); EOSINOPHILS # (AUTO) 0.1 X10'3 (0-0.9); PLATELET ESTIMATE INCREASED; TOTAL CELLS COUNTED 100
[2024-06-15] MEDS: normal saline 1000ml 1,000 ML IV ONE (02:18)
[2024-06-15] MEDS: levoFLOXACIN-Levaquin 750MG/D5 150 ML IV STA (02:19)
[2024-06-15] MEDS: morphine 4 MG/ML inj SYRINge IV ONE (02:19)
[2024-06-15 02:28] LABS: LIPASE 22 U/L (16-77)
[2024-06-15] MEDS ORDERED: HYDR-3972 PO (03:11)
[2024-06-15] MEDS ORDERED: GUAN1TAB PO (03:11)
[2024-06-15] MEDS ORDERED: FURO20TA4 PO (03:11)
[2024-06-15] MEDS ORDERED: TEST200V33 IM (03:11)
[2024-06-15] MEDS ORDERED: BUPR-561 PO (03:11)
[2024-06-15] MEDS ORDERED: ANAS1TAB10 PO (03:11)
[2024-06-15 03:14] LABS: ANION GAP 10 (8-16); BLOOD UREA NITROGEN 23 MG/DL (7-18); BUN/CREATININE RATIO 14.6 (10.0-20.0); CHLORIDE 95 MMOL/L (99-107); CREATININE 1.57 MG/DL (0.60-1.10); GLUCOSE 105 MG/DL (70-104); POTASSIUM 3.8 MMOL/L (3.5-5.1); SODIUM 133 MMOL/L (135-145); TOTAL CARBON DIOXIDE 28.3 MMOL/L (24-32); eCRCL 49 ML/MIN; eGFR 49 ML/MIN
[2024-06-15 03:15] LABS: ALBUMIN 2.4 G/DL (3.4-5.0); LIPASE 22 U/L (16-77); PRO BRAIN NATRIURETIC PEPTIDE 375 PG/ML (0-125)
[2024-06-15] MEDS ORDERED: ALPR0.5T8 PO (03:50)
[2024-06-15] MEDS ORDERED: magnesium Cl slow-release 64mg tablet PO PRN (04:35)
[2024-06-15] MEDS ORDERED: magnesium sulf-water 4G/100mL 100 ML IV PRN (04:35)
[2024-06-15] MEDS ORDERED: potassium Cl 40MEQ/1/2NS 520ml 520 ML IV PRN (04:35)
[2024-06-15] MEDS ORDERED: magnesium sulf-water 2g/50mL 50 ML IV PRN (04:35)
[2024-06-15] MEDS ORDERED: potassium Cl 20 mEq SR tablet PO PRN ×2 (04:35)
[2024-06-15] MEDS: ALPRAZolam 0.5mg tablet PO PRN (05:25)
[2024-06-15] MEDS: CefTRIAXone/D5W-Rocephin 1gm 50 ML IV ONE (05:26)
[2024-06-15] MEDS ORDERED: clindamycin 600mg/D5W 50ml 50 ML IV SCH (06:00)
[2024-06-15 06:58] LABS: MAGNESIUM 2.1 MG/DL (1.5-2.4); POTASSIUM 4.1 MMOL/L (3.5-5.1)
[2024-06-15] MEDS: K and/or MAG REPLACEMENT MC SCH (07:06)
[2024-06-15] MEDS: docusate sod 100mg capsule PO SCH (07:08)
[2024-06-15] MEDS: VANCOMYCIN 1GM 200ML H20 (PEG) 200 ML IV SCH (07:12)
[2024-06-15] MEDS: atorvastatin 20mg tablet PO SCH (07:13)
[2024-06-15] MEDS: fenofibrate 145mg tablet PO SCH (07:13)
[2024-06-15] MEDS: ESCITALOPRAM 10 mg tablet 10 MG TABLET PO SCH (07:13)
[2024-06-15] MEDS: BUPROPION HCL 150MG XL 24 HR 150 MG TAB PO SCH (07:13)
[2024-06-15] MEDS: pantoprazole 40mg Tablet.DR PO SCH (07:14)
[2024-06-15] MEDS: morphine 2 MG/ML inj. syringe IV PRN ×2 (08:13→12:42)
[2024-06-15] MEDS: acetaminophen 325mg tablet PO PRN (08:24)
[2024-06-15] MEDS: ondansetron/PF 4mg/2ml inj IV PRN (09:09)
[2024-06-15] MEDS: ampicill/sulbac 1.5gm/NS 100ml 100 ML IV SCH (09:13)
[2024-06-15] MEDS: HYDROcodone/acetaminophen 5mg/325mg tablet PO PRN (09:48)
[2024-06-15 16:19] VITALS: BP 112/68; PULSE 104; RESP 18; TEMP 99.7; O2SAT 95
[2024-06-15 17:41] VITALS: RESP 18; O2SAT 99
[2024-06-15 18:00] VITALS: BP 123/59; PULSE 113; RESP 22; TEMP 98.1; O2SAT 94
[2024-06-15 18:30] VITALS: O2SAT 94
[2024-06-15 20:00] VITALS: RESP 16; O2SAT 94
[2024-06-15] MEDS: normal saline 1000ml 1,000 ML IV SCH (20:11)
[2024-06-15] MEDS: magnesium hydroxide 30ml (MOM) UD suspension PO PRN (20:20)
[2024-06-15] MEDS: enoxaparin 40mg/0.4ml syringe SUBCUT SCH (20:21)
[2024-06-15 22:00] VITALS: BP 99/45; PULSE 97; RESP 16; TEMP 98.2; O2SAT 93
[2024-06-16] VITALS (9 sets, daily range): BP systolic 104–133; BP diastolic 53–74; PULSE 103–113; RESP 15–20; TEMP 97.9–100.8; O2SAT 94–98
[2024-06-16] MEDS: acetaminophen 325mg tablet PO PRN (03:02)
[2024-06-16 07:28] LABS: BASOPHILS # (AUTO) 0.1 X10'3 (0-0.2); BASOPHILS % (AUTO) 0.3 % (0-1); EOSINOPHILS % (AUTO) 0.1 % (0-6); HEMATOCRIT 37.5 % (42.0-52.0); HEMOGLOBIN 12.8 g/dl (14.0-17.9); LYMPHOCYTES # (AUTO) 4.7 X10'3 (1.1-4.8); LYMPHOCYTES % (AUTO) 22.4 % (21-51); MEAN CORPUSCULAR HEMOGLOBIN 30.1 PG (27.0-31.0); MEAN CORPUSCULAR HGB CONC 34.2 g/dL (33.0-36.5); MEAN CORPUSCULAR VOLUME 88.1 FL (78-98); MEAN PLATELET VOLUME 6.6 FL (7.4-10.4); MONOCYTES # (AUTO) 1.9 X10'3 (0-0.9); MONOCYTES % (AUTO) 9.2 % (2-12); NEUTROPHILS # (AUTO) 14.2 X10'3 (1.8-7.7); PLATELET COUNT 605 X10'3 (140-440); RED BLOOD COUNT 4.25 X10'6 (4.70-6.10); RED CELL DISTRIBUTION WIDTH 14.5 % (11.5-14.5); WHITE BLOOD COUNT 20.9 X10'3 (4.5-11.0)
[2024-06-16] MEDS: vancomycin/NS 1 GM ADD-VANTAGE 250 ML IV SCH (07:33)
[2024-06-16 07:39] LABS: ALANINE AMINOTRANSFERASE 20 U/L (12-78); ALBUMIN 1.9 G/DL (3.4-5.0); ALBUMIN/GLOBULIN RATIO 0.4 (1.1-1.5); ALKALINE PHOSPHATASE 92 IU/L (46-116); ANION GAP 8 (8-16); ASPARTATE AMINO TRANSFERASE 12 U/L (10-37); BILIRUBIN,TOTAL 0.5 MG/DL (0.1-1.0); BLOOD UREA NITROGEN 9 MG/DL (7-18); BUN/CREATININE RATIO 9.1 (10.0-20.0); CALCIUM 8.2 MG/DL (8.5-10.1); CHLORIDE 100 MMOL/L (99-107); CREATININE 0.99 MG/DL (0.60-1.10); GLUCOSE 92 MG/DL (70-104); MAGNESIUM 2.1 MG/DL (1.5-2.4); SODIUM 136 MMOL/L (135-145); TOTAL CARBON DIOXIDE 27.7 MMOL/L (24-32); eCRCL 78 ML/MIN; eGFR 83 ML/MIN
[2024-06-16 10:00] LABS: PLATELET ESTIMATE INCREASED; TOTAL CELLS COUNTED 100
[2024-06-16 10:01] LABS: TOXIC GRANULATION 2+
[2024-06-16] MEDS: bisacodyl 10mg suppository rectal RC PRN (11:58)
[2024-06-16] MEDS: LIDOcaine/PRILOcaine 5gm cream TP PRN (14:21)
[2024-06-16] MEDS: HYDROcodone/acetaminophen 10/325mg tab PO PRN (14:22)
[2024-06-16] MEDS: mineral oil 133ml enema RC PRN (15:34)
[2024-06-16] MEDS: VANCOMYCIN LEVEL IV ONE (19:38)
[2024-06-17] VITALS (10 sets, daily range): BP systolic 112–144; BP diastolic 61–84; PULSE 78–124; RESP 16–24; TEMP 97.6–102.2; O2SAT 93–98
[2024-06-17 09:09] LABS: BASOPHILS # (AUTO) 0.1 X10'3 (0-0.2); BASOPHILS % (AUTO) 0.4 % (0-1); EOSINOPHILS % (AUTO) 0.1 % (0-6); HEMOGLOBIN 13.1 g/dl (14.0-17.9); LYMPHOCYTES # (AUTO) 3.7 X10'3 (1.1-4.8); LYMPHOCYTES % (AUTO) 16.2 % (21-51); MEAN CORPUSCULAR HEMOGLOBIN 30.3 PG (27.0-31.0); MEAN CORPUSCULAR HGB CONC 34.6 g/dL (33.0-36.5); MEAN CORPUSCULAR VOLUME 87.4 FL (78-98); MEAN PLATELET VOLUME 6.4 FL (7.4-10.4); MONOCYTES # (AUTO) 1.9 X10'3 (0-0.9); MONOCYTES % (AUTO) 8.4 % (2-12); NEUTROPHILS # (AUTO) 17.3 X10'3 (1.8-7.7); NEUTROPHILS % (AUTO) 74.9 % (42-75); PLATELET COUNT 558 X10'3 (140-440); RED BLOOD COUNT 4.34 X10'6 (4.70-6.10); RED CELL DISTRIBUTION WIDTH 14.5 % (11.5-14.5)
[2024-06-17 09:15] LABS: ALANINE AMINOTRANSFERASE 20 U/L (12-78); ALBUMIN 2.2 G/DL (3.4-5.0); ALBUMIN/GLOBULIN RATIO 0.4 (1.1-1.5); ALKALINE PHOSPHATASE 101 IU/L (46-116); ANION GAP 8 (8-16); ASPARTATE AMINO TRANSFERASE 22 U/L (10-37); BILIRUBIN,TOTAL 0.6 MG/DL (0.1-1.0); BLOOD UREA NITROGEN 5 MG/DL (7-18); BUN/CREATININE RATIO 5.4 (10.0-20.0); CALCIUM 8.1 MG/DL (8.5-10.1); CHLORIDE 99 MMOL/L (99-107); CREATININE 0.92 MG/DL (0.60-1.10); GLUCOSE 118 MG/DL (70-104); POTASSIUM 4.1 MMOL/L (3.5-5.1); SODIUM 134 MMOL/L (135-145); TOTAL CARBON DIOXIDE 27.4 MMOL/L (24-32); TOTAL PROTEIN 7.8 G/DL (6.4-8.2); eCRCL 84 ML/MIN; eGFR 90 ML/MIN
[2024-06-17 09:28] LABS: PLATELET ESTIMATE INCREASED; TOTAL CELLS COUNTED 100
[2024-06-17 10:34] LABS: HIV ANTIBODY 1&2 RAPID NON-REACTIVE (Neg)
[2024-06-17] MEDS ORDERED: oxyCODONE/APAP 5-325mg tablet PO PRN (12:00)
[2024-06-17] MEDS: oxyCODONE/APAP 10/325mg tablet PO PRN (12:24)
[2024-06-17] MEDS: vancomycin/NS 1 GM ADD-VANTAGE 250 ML IV SCH (16:40)
[2024-06-17] MEDS: acetaminophen 1,000mg/100ml IV 100 ML IV ONE (19:52)
[2024-06-18] VITALS (9 sets, daily range): BP systolic 122–145; BP diastolic 71–84; PULSE 110–128; RESP 16–24; TEMP 97.7–101.3; O2SAT 92–100
[2024-06-18 06:25] LABS: BASOPHILS % (AUTO) 0.2 % (0-1); EOSINOPHILS # (AUTO) 0.1 X10'3 (0-0.9); EOSINOPHILS % (AUTO) 0.3 % (0-6); HEMATOCRIT 37.9 % (42.0-52.0); HEMOGLOBIN 12.8 g/dl (14.0-17.9); LYMPHOCYTES # (AUTO) 4.7 X10'3 (1.1-4.8); LYMPHOCYTES % (AUTO) 21.1 % (21-51); MEAN CORPUSCULAR HEMOGLOBIN 29.8 PG (27.0-31.0); MEAN CORPUSCULAR HGB CONC 33.8 g/dL (33.0-36.5); MEAN CORPUSCULAR VOLUME 88.3 FL (78-98); MEAN PLATELET VOLUME 6.6 FL (7.4-10.4); MONOCYTES # (AUTO) 2.1 X10'3 (0-0.9); MONOCYTES % (AUTO) 9.4 % (2-12); NEUTROPHILS # (AUTO) 15.5 X10'3 (1.8-7.7); PLATELET COUNT 540 X10'3 (140-440); RED BLOOD COUNT 4.29 X10'6 (4.70-6.10); RED CELL DISTRIBUTION WIDTH 14.1 % (11.5-14.5); WHITE BLOOD COUNT 22.5 X10'3 (4.5-11.0)
[2024-06-18 06:52] LABS: ALANINE AMINOTRANSFERASE 22 U/L (12-78); ALBUMIN 2.2 G/DL (3.4-5.0); ALBUMIN/GLOBULIN RATIO 0.4 (1.1-1.5); ALKALINE PHOSPHATASE 93 IU/L (46-116); ANION GAP 10 (8-16); ASPARTATE AMINO TRANSFERASE 24 U/L (10-37); BILIRUBIN,TOTAL 0.6 MG/DL (0.1-1.0); BLOOD UREA NITROGEN 6 MG/DL (7-18); BUN/CREATININE RATIO 6.9 (10.0-20.0); CALCIUM 8.5 MG/DL (8.5-10.1); CHLORIDE 98 MMOL/L (99-107); CREATININE 0.87 MG/DL (0.60-1.10); GLUCOSE 92 MG/DL (70-104); POTASSIUM 3.8 MMOL/L (3.5-5.1); SODIUM 134 MMOL/L (135-145); TOTAL CARBON DIOXIDE 26.5 MMOL/L (24-32); TOTAL PROTEIN 7.7 G/DL (6.4-8.2); eCRCL 89 ML/MIN; eGFR > 90 ML/MIN
[2024-06-18 07:29] LABS: PLATELET ESTIMATE INCREASED; TOTAL CELLS COUNTED 100
[2024-06-18 07:30] LABS: TOXIC GRANULATION 1+
[2024-06-18] MEDS ORDERED: HYDROmorphone inj. 0.5 MG/0.5 ML DISP.SYRIN IV PRN (12:40)
[2024-06-18] MEDS: tizanidine 4mg tablet PO PRN (13:37)
[2024-06-18] MEDS: HYDROmorphone 1 mg/ml syringe IV PRN (14:53)
[2024-06-18] MEDS: VANCOMYCIN LEVEL IV ONE (15:32)
[2024-06-18] MEDS: ALPRAZolam 0.5mg tablet PO PRN (22:55)
[2024-06-19] VITALS (11 sets, daily range): BP systolic 106–149; BP diastolic 59–74; PULSE 97–127; RESP 12–18; TEMP 97.8–98.8; O2SAT 94–100
[2024-06-19] MEDS: VANCOmycin 1250MG/NS 250ml Bag 250 ML IV SCH (00:13)
[2024-06-19] MEDS: morphine 2 MG/ML inj. syringe IV ONE (03:20)
[2024-06-19 06:36] LABS: BASOPHILS # (AUTO) 0.1 X10'3 (0-0.2); BASOPHILS % (AUTO) 0.3 % (0-1); EOSINOPHILS # (AUTO) 0.5 X10'3 (0-0.9); EOSINOPHILS % (AUTO) 2.2 % (0-6); HEMATOCRIT 37.8 % (42.0-52.0); HEMOGLOBIN 12.9 g/dl (14.0-17.9); LYMPHOCYTES # (AUTO) 4.8 X10'3 (1.1-4.8); LYMPHOCYTES % (AUTO) 22.2 % (21-51); MEAN CORPUSCULAR HGB CONC 34.1 g/dL (33.0-36.5); MEAN CORPUSCULAR VOLUME 87.8 FL (78-98); MEAN PLATELET VOLUME 6.5 FL (7.4-10.4); MONOCYTES % (AUTO) 9.3 % (2-12); NEUTROPHILS # (AUTO) 14.3 X10'3 (1.8-7.7); PLATELET COUNT 567 X10'3 (140-440); RED CELL DISTRIBUTION WIDTH 14.8 % (11.5-14.5); WHITE BLOOD COUNT 21.7 X10'3 (4.5-11.0)
[2024-06-19 07:03] LABS: ALANINE AMINOTRANSFERASE 39 U/L (12-78); ALBUMIN/GLOBULIN RATIO 0.4 (1.1-1.5); ALKALINE PHOSPHATASE 114 IU/L (46-116); ANION GAP 9 (8-16); ASPARTATE AMINO TRANSFERASE 41 U/L (10-37); BILIRUBIN,TOTAL 0.5 MG/DL (0.1-1.0); BLOOD UREA NITROGEN 4 MG/DL (7-18); BUN/CREATININE RATIO 4.8 (10.0-20.0); CALCIUM 8.7 MG/DL (8.5-10.1); CHLORIDE 99 MMOL/L (99-107); CREATININE 0.83 MG/DL (0.60-1.10); GLUCOSE 116 MG/DL (70-104); MAGNESIUM 1.9 MG/DL (1.5-2.4); POTASSIUM 3.7 MMOL/L (3.5-5.1); SODIUM 135 MMOL/L (135-145); TOTAL CARBON DIOXIDE 27.5 MMOL/L (24-32); TOTAL PROTEIN 7.6 G/DL (6.4-8.2); eCRCL 93 ML/MIN; eGFR > 90 ML/MIN
[2024-06-19] MEDS ORDERED: iohexol 300mg/ml 100ml inj. ONE (11:57)
[2024-06-19] MEDS ORDERED: BUPIVAcaine 0.5% inj/PF 30 ML ONE (13:13)
[2024-06-19] MEDS ORDERED: morphine 2 MG/ML inj. syringe IV PRN ×2 (15:50→20:15)
[2024-06-19] MEDS ORDERED: ondansetron/PF 4mg/2ml inj IV PRN ×2 (15:50→20:15)
[2024-06-19] MEDS ORDERED: morphine 4 MG/ML inj SYRINge IV PRN ×2 (15:50→20:15)
[2024-06-19] MEDS ORDERED: meperidine/PF 25mg/ml syringe IV PRN (15:50)
[2024-06-19] MEDS ORDERED: MIDAZolam 1mg/ml 10ml vial ONE (16:09)
[2024-06-19] MEDS ORDERED: propofol inj 20 ML IV ONE (16:09)
[2024-06-19] MEDS ORDERED: fentaNYL /PF 50mcg/ml 5ml ampule ONE ×2 (16:09→18:47)
[2024-06-19] MEDS ORDERED: rocuronium 10mg/ml inj IV ONE ×3 (16:10→18:40)
[2024-06-19] MEDS ORDERED: sevoflurane 250ml liquid IH ONE (16:14)
[2024-06-19] MEDS: ringers solution, lacted 1,000 ML IV SCH (18:14)
[2024-06-19] MEDS: propofol 1000mg/100ml bottle 100 ML IV SCH (18:25)
[2024-06-19] MEDS: FENTANYL-0.9 % NACL/PF 100 ML IV SCH (18:25)
[2024-06-19] MEDS ORDERED: albumin (Human) 5% 250ml 250 ML IV ONE ×3 (18:40)
[2024-06-19] MEDS ORDERED: FENTANYL-0.9 % NACL/PF 100 ML IV SCH (20:15)
[2024-06-19] MEDS ORDERED: albuterol 2.5 MG/3 ML nebule NEB PRN (20:15)
[2024-06-19] MEDS ORDERED: metoclopramide 5 mg/ml inj IV PRN (20:15)
[2024-06-19] MEDS ORDERED: HYDROcodone/acetaminophen 10/325mg tab PO PRN ×2 (20:15)
[2024-06-19 21:00] LABS: ABG BASE EXCESS 1.2 mmol/L (-2.0-3.0); ABG HCO3 26.1 mmol/L (21.0-28.0); ABG OXYGEN SATURATION 98.9 % (94.0-98.0); ABG PCO2 (T) 42.3 mmHg (35.0-48.0); ABG PH (T) 7.407 (7.350-7.450); ABG PO2 (T) 138.4 mmHg (83.0-108.0); FCOHb 0.7 % (0.5-1.5); FHHb 1.1 % (0.0-5.0); FMetHb 0.3 % (0.0-1.5); FO2Hb 97.9 % (94.0-98.0); MODE SIMV; PATIENT TEMPERATURE 36.9; PEEP 8 cm H2O; RESPIRATORY RATE 12 b/min; TIDAL VOLUME 700 mL; TOTAL HEMOGLOBIN 12.1 G/dl (13.5-17.5)
[2024-06-19] MEDS: potassium Cl 20mEq in D5-NS 1,000 ML IV SCH (21:15)
[2024-06-19 21:46] LABS: BASOPHILS % (AUTO) 0.2 % (0-1); EOSINOPHILS % (AUTO) 0.2 % (0-6); HEMOGLOBIN 11.1 g/dl (14.0-17.9); LYMPHOCYTES # (AUTO) 2.5 X10'3 (1.1-4.8); LYMPHOCYTES % (AUTO) 9.9 % (21-51); MEAN CORPUSCULAR HEMOGLOBIN 29.8 PG (27.0-31.0); MEAN CORPUSCULAR HGB CONC 33.8 g/dL (33.0-36.5); MEAN PLATELET VOLUME 6.1 FL (7.4-10.4); MONOCYTES # (AUTO) 0.9 X10'3 (0-0.9); MONOCYTES % (AUTO) 3.6 % (2-12); NEUTROPHILS # (AUTO) 21.7 X10'3 (1.8-7.7); NEUTROPHILS % (AUTO) 86.1 % (42-75); PLATELET COUNT 595 X10'3 (140-440); RED BLOOD COUNT 3.75 X10'6 (4.70-6.10); RED CELL DISTRIBUTION WIDTH 14.1 % (11.5-14.5)
[2024-06-19 21:48] LABS: WHITE BLOOD COUNT 25.2 X10'3 (4.5-11.0)
[2024-06-19 21:59] LABS: APTT 30 SECONDS (22-32); INR 1.3 INR; PROTHROMBIN TIME 13.7 SECONDS (9.0-12.0)
[2024-06-19 22:02] LABS: ALANINE AMINOTRANSFERASE 24 U/L (12-78); ALBUMIN 2.2 G/DL (3.4-5.0); ALBUMIN/GLOBULIN RATIO 0.5 (1.1-1.5); ALKALINE PHOSPHATASE 81 IU/L (46-116); ANION GAP 8 (8-16); ASPARTATE AMINO TRANSFERASE 26 U/L (10-37); BILIRUBIN,TOTAL 0.9 MG/DL (0.1-1.0); BLOOD UREA NITROGEN 7 MG/DL (7-18); BUN/CREATININE RATIO 9.1 (10.0-20.0); CALCIUM 7.8 MG/DL (8.5-10.1); CHLORIDE 102 MMOL/L (99-107); CREATININE 0.77 MG/DL (0.60-1.10); GLUCOSE 137 MG/DL (70-104); MAGNESIUM 1.8 MG/DL (1.5-2.4); PHOSPHORUS 3.7 MG/DL (2.3-4.5); POTASSIUM 3.8 MMOL/L (3.5-5.1); SODIUM 136 MMOL/L (135-145); TOTAL CARBON DIOXIDE 26.2 MMOL/L (24-32); TOTAL CELLS COUNTED 100; TOTAL PROTEIN 6.5 G/DL (6.4-8.2); eCRCL 101 ML/MIN; eGFR > 90 ML/MIN
[2024-06-19] MEDS: COMMUNICATION ORDER 1 EA MISC MC ONE (22:06)
[2024-06-19 22:16] LABS: HIV ANTIBODY 1&2 RAPID NON-REACTIVE (Neg)
[2024-06-19] MEDS: diltiazem 5mg/ml 5ml inj. IV ONE (22:30)
[2024-06-19] MEDS: diltiazem-NS 100mg/100ml 100 ML IV SCH (22:48)
[2024-06-19] MEDS: VANCOMYCIN LEVEL IV ONE (23:58)
[2024-06-20] VITALS (31 sets, daily range): BP systolic 57–124; BP diastolic 41–74; PULSE 117–145; RESP 12–36; O2SAT 92–98
[2024-06-20] MEDS: piperacillin/tazo 3.375gm/50ml 50 ML IV SCH (00:01)
[2024-06-20] MEDS: albumin (Human) 5% 250ml 250 ML IV ONE (00:16)
[2024-06-20 02:35] LABS: BASOPHILS % (AUTO) 0.1 % (0-1); EOSINOPHILS % (AUTO) 0 % (0-6); HEMATOCRIT 30.7 % (42.0-52.0); HEMOGLOBIN 10.5 g/dl (14.0-17.9); LYMPHOCYTES # (AUTO) 1.6 X10'3 (1.1-4.8); LYMPHOCYTES % (AUTO) 5.9 % (21-51); MEAN CORPUSCULAR HEMOGLOBIN 30.1 PG (27.0-31.0); MEAN CORPUSCULAR HGB CONC 34.1 g/dL (33.0-36.5); MEAN CORPUSCULAR VOLUME 88.1 FL (78-98); MEAN PLATELET VOLUME 6.5 FL (7.4-10.4); MONOCYTES # (AUTO) 0.9 X10'3 (0-0.9); MONOCYTES % (AUTO) 3.5 % (2-12); NEUTROPHILS % (AUTO) 90.5 % (42-75); PLATELET COUNT 562 X10'3 (140-440); RED BLOOD COUNT 3.48 X10'6 (4.70-6.10); RED CELL DISTRIBUTION WIDTH 14.6 % (11.5-14.5)
[2024-06-20 02:40] LABS: WHITE BLOOD COUNT 26.5 X10'3 (4.5-11.0)
[2024-06-20 02:56] LABS: ALANINE AMINOTRANSFERASE 24 U/L (12-78); ALBUMIN 2.2 G/DL (3.4-5.0); ALBUMIN/GLOBULIN RATIO 0.5 (1.1-1.5); ALKALINE PHOSPHATASE 69 IU/L (46-116); ANION GAP 11 (8-16); ASPARTATE AMINO TRANSFERASE 24 U/L (10-37); BILIRUBIN,TOTAL 0.6 MG/DL (0.1-1.0); BLOOD UREA NITROGEN 8 MG/DL (7-18); BUN/CREATININE RATIO 10.3 (10.0-20.0); CALCIUM 7.9 MG/DL (8.5-10.1); CHLORIDE 102 MMOL/L (99-107); CREATININE 0.78 MG/DL (0.60-1.10); GLUCOSE 152 MG/DL (70-104); MAGNESIUM 1.5 MG/DL (1.5-2.4); PHOSPHORUS 3.9 MG/DL (2.3-4.5); POTASSIUM 4.3 MMOL/L (3.5-5.1); SODIUM 137 MMOL/L (135-145); TOTAL CARBON DIOXIDE 24.3 MMOL/L (24-32); TOTAL PROTEIN 6.3 G/DL (6.4-8.2); eCRCL 99 ML/MIN; eGFR > 90 ML/MIN
[2024-06-20 03:09] LABS: TOTAL CELLS COUNTED 100
[2024-06-20 03:41] LABS: ABG BASE EXCESS -2.8 mmol/L (-2.0-3.0); ABG HCO3 21.8 mmol/L (21.0-28.0); ABG OXYGEN SATURATION 97.2 % (94.0-98.0); ABG PCO2 (T) 38.3 mmHg (35.0-48.0); ABG PH (T) 7.376 (7.350-7.450); FCOHb 0.3 % (0.5-1.5); FHHb 2.8 % (0.0-5.0); FMetHb 0.3 % (0.0-1.5); FO2Hb 96.6 % (94.0-98.0); MODE VENT - SIMV; PATIENT TEMPERATURE 37.8; PEEP 8 cm H2O; RESPIRATORY RATE 12 b/min; TIDAL VOLUME 700 mL; TOTAL HEMOGLOBIN 11.3 G/dl (13.5-17.5)
[2024-06-20 05:37] LABS: HEP B CORE AB, IGM Negative (Negative); HEP B SURF AB Non Reactive (.); HEPATITIS C VIRUS ANTIBODY Non Reactive (Non Reactive)
[2024-06-20] MEDS: docusate sodium 100mg/10ml UD cup NG SCH (07:24)
[2024-06-20] MEDS: gabapentin 300mg capsule PO SCH (07:25)
[2024-06-20] MEDS ORDERED: naloxone 0.4 mg/ml inj IV PRN (09:40)
[2024-06-20 09:53] LABS: ABG BASE EXCESS 0.3 mmol/L (-2.0-3.0); ABG HCO3 24.8 mmol/L (21.0-28.0); ABG OXYGEN SATURATION 95.6 % (94.0-98.0); ABG PCO2 (T) 40.3 mmHg (35.0-48.0); ABG PH (T) 7.409 (7.350-7.450); ABG PO2 (T) 77.8 mmHg (83.0-108.0); FCOHb 0.4 % (0.5-1.5); FHHb 4.4 % (0.0-5.0); FMetHb 0.3 % (0.0-1.5); FO2Hb 94.9 % (94.0-98.0); MODE VENT - CPAP; PATIENT TEMPERATURE 37.4; PEEP 5 cm H2O; TOTAL HEMOGLOBIN 11.1 G/dl (13.5-17.5)
[2024-06-20] MEDS: HYDROmorph/NS 0.2 mg/ml PCA 100 ML IV SCH (11:10)
[2024-06-20] MEDS: ketorolac trometh 30MG/ML vial 30 MG/ML VIAL IV SCH (13:05)
[2024-06-20] MEDS: VANCOMYCIN 1,500MG in normal saline IV soln 300 ML IV SCH (16:22)
[2024-06-21] VITALS (15 sets, daily range): BP systolic 102–142; BP diastolic 55–74; PULSE 98–141; RESP 16–33; TEMP 98.1–98.9; O2SAT 91–98
[2024-06-21 02:40] LABS: BASOPHILS # (AUTO) 0.1 X10'3 (0-0.2); BASOPHILS % (AUTO) 0.2 % (0-1); EOSINOPHILS # (AUTO) 0.4 X10'3 (0-0.9); EOSINOPHILS % (AUTO) 1.6 % (0-6); HEMATOCRIT 30.6 % (42.0-52.0); HEMOGLOBIN 10.1 g/dl (14.0-17.9); LYMPHOCYTES # (AUTO) 4.3 X10'3 (1.1-4.8); LYMPHOCYTES % (AUTO) 16.9 % (21-51); MEAN CORPUSCULAR HEMOGLOBIN 29.1 PG (27.0-31.0); MEAN CORPUSCULAR HGB CONC 33.1 g/dL (33.0-36.5); MEAN CORPUSCULAR VOLUME 87.9 FL (78-98); MEAN PLATELET VOLUME 6.6 FL (7.4-10.4); MONOCYTES # (AUTO) 1.1 X10'3 (0-0.9); MONOCYTES % (AUTO) 4.3 % (2-12); NEUTROPHILS # (AUTO) 19.8 X10'3 (1.8-7.7); PLATELET COUNT 536 X10'3 (140-440); RED BLOOD COUNT 3.48 X10'6 (4.70-6.10); RED CELL DISTRIBUTION WIDTH 14.3 % (11.5-14.5)
[2024-06-21 02:52] LABS: WHITE BLOOD COUNT 25.7 X10'3 (4.5-11.0)
[2024-06-21 02:58] LABS: ALANINE AMINOTRANSFERASE 24 U/L (12-78); ALBUMIN 1.8 G/DL (3.4-5.0); ALBUMIN/GLOBULIN RATIO 0.4 (1.1-1.5); ALKALINE PHOSPHATASE 79 IU/L (46-116); ANION GAP 6 (8-16); ASPARTATE AMINO TRANSFERASE 37 U/L (10-37); BILIRUBIN,TOTAL 0.4 MG/DL (0.1-1.0); BLOOD UREA NITROGEN 7 MG/DL (7-18); BUN/CREATININE RATIO 8.5 (10.0-20.0); CALCIUM 7.8 MG/DL (8.5-10.1); CHLORIDE 102 MMOL/L (99-107); CREATININE 0.82 MG/DL (0.60-1.10); GLUCOSE 121 MG/DL (70-104); MAGNESIUM 1.8 MG/DL (1.5-2.4); POTASSIUM 3.9 MMOL/L (3.5-5.1); SODIUM 138 MMOL/L (135-145); TOTAL CARBON DIOXIDE 30.5 MMOL/L (24-32); eCRCL 94 ML/MIN; eGFR > 90 ML/MIN
[2024-06-21 03:26] LABS: PLATELET ESTIMATE INCREASED; TOTAL CELLS COUNTED 100
[2024-06-21] MEDS: PCA WASTE DOCUMENTATION 1 MG ML MC PRN (08:50)
[2024-06-21] MEDS: metoprolol tartrate 1mg/ml inj IV SCH (15:21)
[2024-06-21] MEDS: metoprolol tartrate 1mg/ml inj IV ONE (16:05)
[2024-06-21] MEDS: VANCOMYCIN LEVEL IV ONE (16:17)
[2024-06-21] MEDS: docusate sodium 100mg/10ml UD cup PO SCH (20:39)
[2024-06-22] VITALS (10 sets, daily range): BP systolic 100–156; BP diastolic 61–95; PULSE 103–123; RESP 15–23; TEMP 96.9–98.6; O2SAT 91–98
[2024-06-22 08:39] LABS: BASOPHILS # (AUTO) 0.1 X10'3 (0-0.2); BASOPHILS % (AUTO) 0.3 % (0-1); EOSINOPHILS # (AUTO) 0.5 X10'3 (0-0.9); HEMOGLOBIN 9.3 g/dl (14.0-17.9); LYMPHOCYTES # (AUTO) 4.5 X10'3 (1.1-4.8); LYMPHOCYTES % (AUTO) 16.7 % (21-51); MEAN CORPUSCULAR VOLUME 87.7 FL (78-98); MEAN PLATELET VOLUME 6.5 FL (7.4-10.4); MONOCYTES # (AUTO) 1.4 X10'3 (0-0.9); MONOCYTES % (AUTO) 5.1 % (2-12); NEUTROPHILS # (AUTO) 20.5 X10'3 (1.8-7.7); NEUTROPHILS % (AUTO) 75.9 % (42-75); PLATELET COUNT 586 X10'3 (140-440); RED CELL DISTRIBUTION WIDTH 14.1 % (11.5-14.5)
[2024-06-22 09:17] LABS: PLATELET ESTIMATE INCREASED; TOTAL CELLS COUNTED 100
[2024-06-22 09:20] LABS: ALANINE AMINOTRANSFERASE 29 U/L (12-78); ALBUMIN 1.7 G/DL (3.4-5.0); ALBUMIN/GLOBULIN RATIO 0.3 (1.1-1.5); ALKALINE PHOSPHATASE 95 IU/L (46-116); ASPARTATE AMINO TRANSFERASE 43 U/L (10-37); BILIRUBIN,TOTAL 0.5 MG/DL (0.1-1.0); BLOOD UREA NITROGEN 9 MG/DL (7-18); BUN/CREATININE RATIO 8.5 (10.0-20.0); CALCIUM 7.9 MG/DL (8.5-10.1); CREATININE 1.06 MG/DL (0.60-1.10); GLUCOSE 102 MG/DL (70-104); TOTAL CARBON DIOXIDE 31.8 MMOL/L (24-32); TOTAL PROTEIN 6.6 G/DL (6.4-8.2); eCRCL 73 ML/MIN; eGFR 77 ML/MIN
[2024-06-22 09:35] LABS: ANION GAP 3 (8-16); CHLORIDE 101 MMOL/L (99-107); POTASSIUM 4.2 MMOL/L (3.5-5.1); SODIUM 136 MMOL/L (135-145)
[2024-06-22] MEDS: HYDROmorph/NS 0.2 mg/ml PCA 100 ML IV SCH (13:00)
[2024-06-22] MEDS: normal saline 1000ml 1,000 ML IV SCH (21:18)
[2024-06-22] MEDS: PERFLUTREN PROTEIN-A MICROSPHR (Optison) 0.22 MG/ML 3ML VIAL IV ONE (21:18)
[2024-06-23] VITALS (9 sets, daily range): BP systolic 104–142; BP diastolic 58–75; PULSE 104–125; RESP 14–22; TEMP 97.5–98.2; O2SAT 94–99
[2024-06-23 04:02] LABS: BASOPHILS # (AUTO) 0.1 X10'3 (0-0.2); BASOPHILS % (AUTO) 0.6 % (0-1); EOSINOPHILS # (AUTO) 0.3 X10'3 (0-0.9); EOSINOPHILS % (AUTO) 1.5 % (0-6); HEMOGLOBIN 9.1 g/dl (14.0-17.9); LYMPHOCYTES # (AUTO) 4.4 X10'3 (1.1-4.8); LYMPHOCYTES % (AUTO) 20.5 % (21-51); MEAN CORPUSCULAR HEMOGLOBIN 29.2 PG (27.0-31.0); MEAN CORPUSCULAR HGB CONC 33.7 g/dL (33.0-36.5); MEAN CORPUSCULAR VOLUME 86.7 FL (78-98); MEAN PLATELET VOLUME 6.4 FL (7.4-10.4); MONOCYTES # (AUTO) 1.3 X10'3 (0-0.9); MONOCYTES % (AUTO) 6.1 % (2-12); NEUTROPHILS # (AUTO) 15.3 X10'3 (1.8-7.7); NEUTROPHILS % (AUTO) 71.3 % (42-75); PLATELET COUNT 514 X10'3 (140-440); RED BLOOD COUNT 3.11 X10'6 (4.70-6.10); RED CELL DISTRIBUTION WIDTH 14.2 % (11.5-14.5); WHITE BLOOD COUNT 21.5 X10'3 (4.5-11.0)
[2024-06-23 04:19] LABS: ALANINE AMINOTRANSFERASE 30 U/L (12-78); ALBUMIN 1.6 G/DL (3.4-5.0); ALBUMIN/GLOBULIN RATIO 0.3 (1.1-1.5); ALKALINE PHOSPHATASE 96 IU/L (46-116); ANION GAP 7 (8-16); ASPARTATE AMINO TRANSFERASE 41 U/L (10-37); BILIRUBIN,TOTAL 0.4 MG/DL (0.1-1.0); BLOOD UREA NITROGEN 11 MG/DL (7-18); BUN/CREATININE RATIO 9.2 (10.0-20.0); CALCIUM 8.5 MG/DL (8.5-10.1); CHLORIDE 101 MMOL/L (99-107); GLUCOSE 104 MG/DL (70-104); POTASSIUM 3.9 MMOL/L (3.5-5.1); SODIUM 136 MMOL/L (135-145); TOTAL CARBON DIOXIDE 28.3 MMOL/L (24-32); TOTAL CELLS COUNTED 100; TOTAL PROTEIN 6.2 G/DL (6.4-8.2); eCRCL 65 ML/MIN; eGFR 66 ML/MIN
[2024-06-23] MEDS: chlorproMAZINE 25mg tablet PO SCH (13:27)
[2024-06-23] MEDS: metoprolol tartrate 25mg tablet PO SCH (20:51)
[2024-06-24] VITALS (11 sets, daily range): BP systolic 104–136; BP diastolic 58–65; PULSE 65–108; RESP 16–22; TEMP 97.4–102.2; O2SAT 95–98
[2024-06-24] MEDS ORDERED: Chloraseptic (Phenol) Spray 177ml MM PRN (02:40)
[2024-06-24] MEDS ORDERED: HALLS - SOOTHE MENTHOL 1.8 MG cough drop LOZENGE MM PRN (02:40)
[2024-06-24 05:34] LABS: EOSINOPHILS # (AUTO) 0.7 X10'3 (0-0.9); EOSINOPHILS % (AUTO) 3.1 % (0-6)
[2024-06-24 05:36] LABS: BASOPHILS # (AUTO) 0.1 X10'3 (0-0.2); BASOPHILS % (AUTO) 0.7 % (0-1); HEMATOCRIT 24.9 % (42.0-52.0); HEMOGLOBIN 8.2 g/dl (14.0-17.9); LYMPHOCYTES # (AUTO) 4.5 X10'3 (1.1-4.8); MEAN CORPUSCULAR HEMOGLOBIN 28.8 PG (27.0-31.0); MEAN CORPUSCULAR HGB CONC 33.1 g/dL (33.0-36.5); MEAN CORPUSCULAR VOLUME 87.1 FL (78-98); MEAN PLATELET VOLUME 6.6 FL (7.4-10.4); MONOCYTES # (AUTO) 1.7 X10'3 (0-0.9); NEUTROPHILS # (AUTO) 14.5 X10'3 (1.8-7.7); NEUTROPHILS % (AUTO) 67.2 % (42-75); PLATELET COUNT 628 X10'3 (140-440); RED BLOOD COUNT 2.86 X10'6 (4.70-6.10); RED CELL DISTRIBUTION WIDTH 14.4 % (11.5-14.5); WHITE BLOOD COUNT 21.5 X10'3 (4.5-11.0)
[2024-06-24 05:49] LABS: ALANINE AMINOTRANSFERASE 27 U/L (12-78); ALBUMIN 1.7 G/DL (3.4-5.0); ALKALINE PHOSPHATASE 86 IU/L (46-116); ANION GAP 7 (8-16); ASPARTATE AMINO TRANSFERASE 33 U/L (10-37); BILIRUBIN,TOTAL 0.4 MG/DL (0.1-1.0); BLOOD UREA NITROGEN 15 MG/DL (7-18); BUN/CREATININE RATIO 11.1 (10.0-20.0); CALCIUM 8.5 MG/DL (8.5-10.1); CHLORIDE 102 MMOL/L (99-107); CREATININE 1.35 MG/DL (0.60-1.10); GLUCOSE 93 MG/DL (70-104); POTASSIUM 4.3 MMOL/L (3.5-5.1); SODIUM 138 MMOL/L (135-145); TOTAL CARBON DIOXIDE 29.2 MMOL/L (24-32); eCRCL 57 ML/MIN; eGFR 58 ML/MIN
[2024-06-24 05:50] LABS: ALBUMIN/GLOBULIN RATIO 0.3 (1.1-1.5); TOTAL PROTEIN 7.7 G/DL (6.4-8.2)
[2024-06-24] MEDS: normal saline 1000ml 1,000 ML IV SCH (09:01)
[2024-06-24] MEDS ORDERED: CLINDAMYCIN 600mg IN NS 50ML 50 ML IV SCH (11:10)
[2024-06-24] MEDS: CefTRIAXone 2gm/D5W 50ml BAG 50 ML IV SCH (13:41)
[2024-06-24] MEDS: clindamycin 600mg/D5W 50ml 50 ML IV SCH (16:59)
[2024-06-25] VITALS (10 sets, daily range): BP systolic 100–137; BP diastolic 44–79; PULSE 87–108; RESP 16–24; TEMP 97.6–99.1; O2SAT 95–98
[2024-06-25] MEDS: mag hydrox/Alum hydrox/simeth 30ml oral suspension PO PRN (02:46)
[2024-06-25 06:40] LABS: ALANINE AMINOTRANSFERASE 24 U/L (12-78); ALBUMIN 1.8 G/DL (3.4-5.0); ALBUMIN/GLOBULIN RATIO 0.4 (1.1-1.5); ALKALINE PHOSPHATASE 91 IU/L (46-116); ANION GAP 9 (8-16); ASPARTATE AMINO TRANSFERASE 33 U/L (10-37); BILIRUBIN,TOTAL 0.4 MG/DL (0.1-1.0); BLOOD UREA NITROGEN 15 MG/DL (7-18); BUN/CREATININE RATIO 11.3 (10.0-20.0); CALCIUM 8.4 MG/DL (8.5-10.1); CHLORIDE 99 MMOL/L (99-107); CREATININE 1.33 MG/DL (0.60-1.10); GLUCOSE 118 MG/DL (70-104); POTASSIUM 3.9 MMOL/L (3.5-5.1); SODIUM 133 MMOL/L (135-145); TOTAL CARBON DIOXIDE 24.9 MMOL/L (24-32); TOTAL PROTEIN 6.8 G/DL (6.4-8.2); eCRCL 58 ML/MIN; eGFR 59 ML/MIN
[2024-06-25 06:47] LABS: BASOPHILS # (AUTO) 0.1 X10'3 (0-0.2); EOSINOPHILS # (AUTO) 0.4 X10'3 (0-0.9); LYMPHOCYTES # (AUTO) 5.3 X10'3 (1.1-4.8); MEAN CORPUSCULAR HGB CONC 33.9 g/dL (33.0-36.5)
[2024-06-25 06:50] LABS: BASOPHILS % (AUTO) 0.3 % (0-1); EOSINOPHILS % (AUTO) 1.5 % (0-6); HEMATOCRIT 24.8 % (42.0-52.0); HEMOGLOBIN 8.4 g/dl (14.0-17.9); LYMPHOCYTES % (AUTO) 20.1 % (21-51); MEAN CORPUSCULAR HEMOGLOBIN 29.3 PG (27.0-31.0); MEAN CORPUSCULAR VOLUME 86.5 FL (78-98); MEAN PLATELET VOLUME 6.7 FL (7.4-10.4); MONOCYTES # (AUTO) 1.8 X10'3 (0-0.9); MONOCYTES % (AUTO) 6.7 % (2-12); NEUTROPHILS # (AUTO) 18.6 X10'3 (1.8-7.7); NEUTROPHILS % (AUTO) 71.4 % (42-75); PLATELET COUNT 673 X10'3 (140-440); RED BLOOD COUNT 2.87 X10'6 (4.70-6.10); RED CELL DISTRIBUTION WIDTH 14.6 % (11.5-14.5)
[2024-06-25 06:56] LABS: WHITE BLOOD COUNT 26.1 X10'3 (4.5-11.0)
[2024-06-25 07:35] LABS: PLATELET ESTIMATE INCREASED; POLYCHROMASIA 2+; STOMATOCYTES 1+; TOTAL CELLS COUNTED 100
[2024-06-25] MEDS: VANCOMYCIN/WATER FOR INJ (PEG) 750MG/150 ML IVPB IV SCH (13:10)
[2024-06-25] MEDS ORDERED: HYDROcodone/acetaminophen 10/325mg tab PO PRN (13:25)
[2024-06-25] MEDS ORDERED: HYDROcodone/acetaminophen 5mg/325mg tablet PO PRN (13:25)
[2024-06-25] MEDS ORDERED: linezolid 600mg/300ml PREMIX 300 ML IV SCH (20:00)
[2024-06-25] MEDS: chlorproMAZINE 25mg tablet PO PRN (20:52)
[2024-06-26] VITALS (8 sets, daily range): BP systolic 119–131; BP diastolic 60–70; PULSE 73–95; RESP 16–20; TEMP 97.6–97.9; O2SAT 96–98
[2024-06-26] MEDS: DOXYCYCLINE 100MG CAPSULE PO SCH (10:54)
[2024-06-26] MEDS: cephalexin 500mg capsule PO SCH (10:54)
[2024-06-26 11:13] LABS: BASOPHILS # (AUTO) 0.1 X10'3 (0-0.2); BASOPHILS % (AUTO) 0.2 % (0-1); EOSINOPHILS # (AUTO) 0.2 X10'3 (0-0.9); EOSINOPHILS % (AUTO) 0.7 % (0-6); HEMATOCRIT 28.2 % (42.0-52.0); HEMOGLOBIN 9.5 g/dl (14.0-17.9); LYMPHOCYTES # (AUTO) 4.8 X10'3 (1.1-4.8); LYMPHOCYTES % (AUTO) 17.2 % (21-51); MEAN CORPUSCULAR HEMOGLOBIN 29.5 PG (27.0-31.0); MEAN CORPUSCULAR HGB CONC 33.9 g/dL (33.0-36.5); MEAN PLATELET VOLUME 6.6 FL (7.4-10.4); MONOCYTES # (AUTO) 1.5 X10'3 (0-0.9); MONOCYTES % (AUTO) 5.4 % (2-12); NEUTROPHILS # (AUTO) 21.3 X10'3 (1.8-7.7); NEUTROPHILS % (AUTO) 76.5 % (42-75); PLATELET COUNT 792 X10'3 (140-440); RED BLOOD COUNT 3.24 X10'6 (4.70-6.10); RED CELL DISTRIBUTION WIDTH 14.7 % (11.5-14.5)
[2024-06-26 11:18] LABS: WHITE BLOOD COUNT 27.8 X10'3 (4.5-11.0)
[2024-06-26 11:34] LABS: ALANINE AMINOTRANSFERASE 23 U/L (12-78); ALBUMIN 2.1 G/DL (3.4-5.0); ALBUMIN/GLOBULIN RATIO 0.4 (1.1-1.5); ALKALINE PHOSPHATASE 85 IU/L (46-116); ANION GAP 6 (8-16); ASPARTATE AMINO TRANSFERASE 27 U/L (10-37); BILIRUBIN,TOTAL 0.4 MG/DL (0.1-1.0); BLOOD UREA NITROGEN 12 MG/DL (7-18); BUN/CREATININE RATIO 9.1 (10.0-20.0); CALCIUM 9.2 MG/DL (8.5-10.1); CHLORIDE 100 MMOL/L (99-107); CREATININE 1.32 MG/DL (0.60-1.10); GLUCOSE 98 MG/DL (70-104); POTASSIUM 4.5 MMOL/L (3.5-5.1); SODIUM 135 MMOL/L (135-145); TOTAL CARBON DIOXIDE 28.6 MMOL/L (24-32); TOTAL PROTEIN 7.9 G/DL (6.4-8.2); eCRCL 59 ML/MIN; eGFR 59 ML/MIN
[2024-06-26] MEDS: VANCOMYCIN LEVEL IV ONE (11:38)
[2024-06-26 11:39] LABS: TOTAL CELLS COUNTED 100
[2024-06-26 11:40] LABS: PLATELET ESTIMATE INCREASED; TOXIC GRANULATION 1+
[2024-06-26 11:42] LABS: POLYCHROMASIA 1+
[2024-06-26 11:43] LABS: STOMATOCYTES 1+
[2024-06-26] MEDS: ALPRAZolam 0.25mg tablet PO PRN (15:37)
[2024-06-26] MEDS ORDERED: iohexol 300mg/ml 100ml inj. ONE (19:33)
[2024-06-26] MEDS: gabapentin 300mg capsule PO SCH (21:44)
[2024-06-27 02:00] VITALS: BP 120/65; PULSE 91; RESP 25; TEMP 97.2; O2SAT 95
[2024-06-27 06:58] LABS: EOSINOPHILS # (AUTO) 0.3 X10'3 (0-0.9); HEMOGLOBIN 9.4 g/dl (14.0-17.9); MONOCYTES # (AUTO) 1.8 X10'3 (0-0.9); MONOCYTES % (AUTO) 6.6 % (2-12); RED CELL DISTRIBUTION WIDTH 14.9 % (11.5-14.5)
[2024-06-27 07:00] VITALS: BP 126/85; PULSE 87; RESP 19; TEMP 97.1; O2SAT 97
[2024-06-27 07:00] LABS: BASOPHILS # (AUTO) 0.1 X10'3 (0-0.2); BASOPHILS % (AUTO) 0.4 % (0-1); EOSINOPHILS % (AUTO) 1.1 % (0-6); LYMPHOCYTES # (AUTO) 6.3 X10'3 (1.1-4.8); LYMPHOCYTES % (AUTO) 23.6 % (21-51); MEAN CORPUSCULAR HEMOGLOBIN 28.1 PG (27.0-31.0); MEAN CORPUSCULAR HGB CONC 32.4 g/dL (33.0-36.5); MEAN CORPUSCULAR VOLUME 86.8 FL (78-98); MEAN PLATELET VOLUME 6.7 FL (7.4-10.4); NEUTROPHILS # (AUTO) 18.3 X10'3 (1.8-7.7); NEUTROPHILS % (AUTO) 68.3 % (42-75); PLATELET COUNT 798 X10'3 (140-440); RED BLOOD COUNT 3.34 X10'6 (4.70-6.10)
[2024-06-27 07:07] LABS: WHITE BLOOD COUNT 26.8 X10'3 (4.5-11.0)
[2024-06-27 07:11] LABS: ALANINE AMINOTRANSFERASE 23 U/L (12-78); ALBUMIN 1.9 G/DL (3.4-5.0); ALBUMIN/GLOBULIN RATIO 0.3 (1.1-1.5); ALKALINE PHOSPHATASE 79 IU/L (46-116); ANION GAP 9 (8-16); ASPARTATE AMINO TRANSFERASE 25 U/L (10-37); BILIRUBIN,TOTAL 0.3 MG/DL (0.1-1.0); BLOOD UREA NITROGEN 12 MG/DL (7-18); BUN/CREATININE RATIO 9.2 (10.0-20.0); CHLORIDE 101 MMOL/L (99-107); CREATININE 1.31 MG/DL (0.60-1.10); GLUCOSE 103 MG/DL (70-104); SODIUM 136 MMOL/L (135-145); TOTAL PROTEIN 7.5 G/DL (6.4-8.2); eCRCL 59 ML/MIN; eGFR 60 ML/MIN
[2024-06-27 07:57] LABS: TOTAL CELLS COUNTED 100
[2024-06-27 07:58] LABS: PLATELET ESTIMATE INCREASED
[2024-06-27 11:00] VITALS: BP 110/71; PULSE 85; RESP 18; TEMP 97.7; O2SAT 97
[2024-06-27 15:00] VITALS: BP 120/72; PULSE 90; RESP 16; TEMP 97.1; O2SAT 96
[2024-06-27 16:35] VITALS: RESP 19
[2024-06-27] MEDS ORDERED: ALBU2.5V7 NEB (17:03)
[2024-06-27] MEDS ORDERED: CEPH-585 PO (17:03)
[2024-06-27] MEDS ORDERED: DOXY-224 PO (17:03)
== END 2024-06-27 17:53 | disposition home or self-care (01) | DRG 710 ==
LOC: ER 23:01 → ED HOLD 06-15 04:39 → UNDOADMIN 06-15 04:39 → ED HOLD 06-15 14:01 → EDBEDREQ 06-15 15:24 → ED HOLD 06-15 16:06 → PCU 3S 06-15 16:06 → CICU 2S 06-19 17:54 → PCU 3S 06-21 15:02
PROVIDERS: ADMIT Internal Medicine Critical Care Medicine; ATTEND Family Medicine
PROC: 0BNG0ZZ Release Left Upper Lung Lobe, Open Approach (ICD-10-PCS; 2024-06-19)
PROC: 0W9B30Z Drainage of Left Pleural Cavity with Drainage Device, Percutaneous Approach (ICD-10-PCS; 2024-06-19)
PROC: BW241ZZ Computerized Tomography (CT Scan) of Chest and Abdomen using Low Osmolar Contrast (ICD-10-PCS; 2024-06-19)
PROC: 0BNJ0ZZ Release Left Lower Lung Lobe, Open Approach (ICD-10-PCS; principal; 2024-06-19 16:14)
DX: A41.9 Sepsis, unspecified organism (principal); J86.9 Pyothorax without fistula; N17.9 Acute kidney failure, unspecified; J18.9 Pneumonia, unspecified organism; I12.9 Hypertensive chronic kidney disease with stage 1 through stage 4 chronic kidney disease, or unspecified chronic kidney disease; N18.30 Chronic kidney disease, stage 3 unspecified; E78.00 Pure hypercholesterolemia, unspecified; J98.4 Other disorders of lung; F32.A Depression, unspecified; F41.9 Anxiety disorder, unspecified; G89.29 Other chronic pain; Z88.8 Allergy status to other drugs, medicaments and biological substances; Z79.899 Other long term (current) drug therapy
CPT/HCPCS: 36415; 36600; 70491; 71045; 71260; 76604; 80048; 80053; 80202; 82803; 82948; 83605; 83690; 83735; 83880; 84100; 84132; 84145; 85007; 85018; 85025; 85610; 85730; 86703; 86705; 86706; 86803; 87040; 87070; 87075; 87077; 87081; 87102; 87186; 87522; 93306; 94002; 94003; 94760; 96365; 96366; 96368; 96375; 99285; A4333; A4615; A4618; A5200; A6213; A6258; A6402; A6449; A7000; A7048; C1751; C1758; C9250; G0378; J0131; J0295; J0696; J1171; J1650; J1885; J1956; J2250; J2270; J2405; J2543; J2704; J3010; J3370; J3372; J3480; J3490; J7030; J7040; J7120; P9045; Q0161; Q9967

== ENCOUNTER 2024-08-30 06:39 | Emergency (ER) | payer MEDICAID ==
[~2024-08-30 06:39] MED LIST changes: +ALBU2.5V7 NEB; +ALPR0.5T8 PO; -ALPR1TAB7 PO; +ANAS1TAB10 PO; +BUPR-561 PO; +CEPH-585 PO; +DOXY-224 PO; +FURO20TA4 PO; +GUAN1TAB PO; +HYDR-3972 PO; -PROC-8 PO; +TEST200V33 IM
[2024-08-30 06:43] VITALS: TEMP 97.9
[2024-08-30 06:57] VITALS: BP 154/61; PULSE 120; O2SAT 96
[2024-08-30 07:21] LABS: APTT 28 SECONDS (22-32); PROTHROMBIN TIME 10.3 SECONDS (9.0-12.0)
[2024-08-30 07:22] LABS: BASOPHILS # (AUTO) 0.1 X10'3 (0-0.2); BASOPHILS % (AUTO) 0.6 % (0-1); EOSINOPHILS # (AUTO) 0.2 X10'3 (0-0.9); EOSINOPHILS % (AUTO) 1.8 % (0-6); HEMATOCRIT 36.9 % (42.0-52.0); HEMOGLOBIN 12.2 g/dl (14.0-17.9); LYMPHOCYTES # (AUTO) 3.5 X10'3 (1.1-4.8); LYMPHOCYTES % (AUTO) 37.3 % (21-51); MEAN CORPUSCULAR HEMOGLOBIN 27.5 PG (27.0-31.0); MEAN CORPUSCULAR HGB CONC 32.9 g/dL (33.0-36.5); MEAN CORPUSCULAR VOLUME 83.5 FL (78-98); MONOCYTES # (AUTO) 0.7 X10'3 (0-0.9); MONOCYTES % (AUTO) 6.9 % (2-12); NEUTROPHILS % (AUTO) 53.4 % (42-75); PLATELET COUNT 266 X10'3 (140-440); RED BLOOD COUNT 4.43 X10'6 (4.70-6.10); RED CELL DISTRIBUTION WIDTH 15.1 % (11.5-14.5); WHITE BLOOD COUNT 9.4 X10'3 (4.5-11.0)
[2024-08-30 07:33] LABS: ALBUMIN 2.7 G/DL (3.4-5.0); ANION GAP 9 (8-16); BLOOD UREA NITROGEN 8 MG/DL (7-18); CALCIUM 8.6 MG/DL (8.5-10.1); CHLORIDE 102 MMOL/L (99-107); CREATININE 0.89 MG/DL (0.60-1.10); GLUCOSE 150 MG/DL (70-104); POTASSIUM 4.1 MMOL/L (3.5-5.1); PRO BRAIN NATRIURETIC PEPTIDE 179 PG/ML (0-125); SODIUM 138 MMOL/L (135-145); TOTAL CARBON DIOXIDE 27.3 MMOL/L (24-32); eGFR > 90 ML/MIN
[2024-08-30 07:44] LABS: BILIRUBIN,URINE NEGATIVE (Neg); CLARITY,URINE CLEAR (Clear); COLOR,URINE YELLOW (Yellow); GLUCOSE, URINE NEGATIVE (Neg); KETONES,URINE NEGATIVE (Neg); LEUKOCYTE ESTERASE ,URINE NEGATIVE (Neg); NITRITES, URINE NEGATIVE (Neg); OCCULT BLOOD,URINE TRACE-LYSED (Neg); PH,URINE 6.5 (4.8-8.0); PROTEIN,URINE NEGATIVE (Neg); UROBILINOGEN,URINE 0.2 E.U/dL (0.2-1.0)
[2024-08-30 07:55] LABS: URINE AMPHETAMINE SCREEN NEGATIVE (Neg); URINE BARBITUATE SCREEN NEGATIVE (Neg); URINE BENZODIAZEPINES SCREEN POSITIVE (Neg); URINE CANNABINOID SCREEN POSITIVE (Neg); URINE COCAINE SCREEN POSITIVE (Neg); URINE METHADONE SCREEN NEGATIVE (Neg); URINE OPIATE SCREEN POSITIVE (Neg); URINE PHENCYCLIDINE SCREEN NEGATIVE (Neg)
[2024-08-30] MEDS ORDERED: iohexol 300mg/ml 100ml inj. ONE (08:00)
[2024-08-30 08:05] VITALS: RESP 16
[2024-08-30] MEDS: ketorolac trometh 15mg/ml vial 15 MG/ML ML IV ONE (08:06)
[2024-08-30 08:34] LABS: UA COLLECTION TYPE NON-SPECIFIED
[2024-08-30 08:36] LABS: SQUAMOUS EPITHELIAL CELL,UR FEW /LPF (FEW); WBC,URINE 0-4 /HPF (0-4)
[2024-08-30 08:38] LABS: BACTERIA,URINE NONE SEEN /HPF (Neg); RBC,URINE NONE SEEN /HPF (0-2)
== END 2024-08-30 08:55 | disposition left against medical advice (07) ==
LOC: ER 06:39
DX: F19.10 Other psychoactive substance abuse, uncomplicated (principal); R05.9 Cough, unspecified; E78.00 Pure hypercholesterolemia, unspecified; F17.200 Nicotine dependence, unspecified, uncomplicated; Z88.8 Allergy status to other drugs, medicaments and biological substances
CPT/HCPCS: 36415; 71046; 71260; 80048; 80305; 81001; 83605; 83880; 84484; 85025; 85610; 85730; 86885; 86900; 86901; 87040; 93005; 99285; Q9967; A4615

== ENCOUNTER 2024-09-04 07:32 | Emergency (ER) | payer MEDICAID ==
[~2024-09-04] VITALS: Ht 172.7 cm; Wt 83.0 kg
[2024-09-04 08:40] VITALS: BP 137/92; PULSE 104; RESP 17; TEMP 98.7
[2024-09-04 08:41] VITALS: O2SAT 99
[2024-09-04] MEDS ORDERED: DOCU-391 PO (08:45)
[2024-09-04] MEDS ORDERED: TRAZ-251 (08:45)
[2024-09-04 08:48] LABS: BASOPHILS % (AUTO) 0.4 % (0-1); EOSINOPHILS % (AUTO) 0.2 % (0-6); HEMATOCRIT 47.4 % (42.0-52.0); HEMOGLOBIN 15.5 g/dl (14.0-17.9); LYMPHOCYTES # (AUTO) 2.5 X10'3 (1.1-4.8); LYMPHOCYTES % (AUTO) 26.4 % (21-51); MEAN CORPUSCULAR HEMOGLOBIN 26.9 PG (27.0-31.0); MEAN CORPUSCULAR HGB CONC 32.7 g/dL (33.0-36.5); MEAN CORPUSCULAR VOLUME 82.5 FL (78-98); MEAN PLATELET VOLUME 6.7 FL (7.4-10.4); MONOCYTES # (AUTO) 0.4 X10'3 (0-0.9); MONOCYTES % (AUTO) 4.6 % (2-12); NEUTROPHILS # (AUTO) 6.5 X10'3 (1.8-7.7); NEUTROPHILS % (AUTO) 68.4 % (42-75); PLATELET COUNT 406 X10'3 (140-440); RED BLOOD COUNT 5.74 X10'6 (4.70-6.10); RED CELL DISTRIBUTION WIDTH 15.1 % (11.5-14.5); WHITE BLOOD COUNT 9.5 X10'3 (4.5-11.0)
[2024-09-04 09:08] LABS: ALBUMIN 3.7 G/DL (3.4-5.0); ANION GAP 11 (8-16); BLOOD UREA NITROGEN 12 MG/DL (7-18); BUN/CREATININE RATIO 17.4 (10.0-20.0); CALCIUM 9.4 MG/DL (8.5-10.1); CHLORIDE 100 MMOL/L (99-107); CREATININE 0.69 MG/DL (0.60-1.10); GLUCOSE 102 MG/DL (70-104); POTASSIUM 3.6 MMOL/L (3.5-5.1); PRO BRAIN NATRIURETIC PEPTIDE 372 PG/ML (0-125); SODIUM 138 MMOL/L (135-145); TOTAL CARBON DIOXIDE 26.8 MMOL/L (24-32); eCRCL 135 ML/MIN; eGFR > 90 ML/MIN
[2024-09-04] MEDS ORDERED: iohexol 300mg/ml 100ml inj. ONE (09:10)
== END 2024-09-04 11:23 | disposition home or self-care (01) ==
LOC: ER 07:32
DX: R09.1 Pleurisy (principal); K85.90 Acute pancreatitis without necrosis or infection, unspecified; I10 Essential (primary) hypertension; E78.00 Pure hypercholesterolemia, unspecified; F41.9 Anxiety disorder, unspecified; F32.A Depression, unspecified; Z60.2 Problems related to living alone; Z98.890 Other specified postprocedural states; Z88.8 Allergy status to other drugs, medicaments and biological substances; Z79.899 Other long term (current) drug therapy
CPT/HCPCS: 36415; 71046; 71260; 80048; 83605; 83880; 84484; 85025; 87040; 93005; 99285; Q9967